=== PATIENT | male | born 1950 | race Caucasian/White ===

== ENCOUNTER → 2020-09-07 15:45 | Outpatient (BNVA) | payer OTHER, MEDICARE, SELFPAY | PROVIDERS: Visit Provider Nurse Practitioner Family | DX: E11.9 Type 2 diabetes mellitus without complications (principal); Z98.890 Other specified postprocedural states | CPT/HCPCS: 82043; 83036 ==

== ENCOUNTER 2022-10-30 08:16 | Oncology outpatient (recurring) (ONCR) | payer MEDICARE, SELFPAY ==
--- NOTE | 2022-10-30 08:43 | N.ONRAD NP_ITS ---
Radiation Oncology Consultation Patient Name: Jose Luis Castellano Date of : 1950 Date of Service: 10/30/2022 Attending Physician: Blake Ash M.D. Jose Luis Castellano was seen in consultation this morning at the request of Castro Olson M.D. for consideration of prostate radiotherapy in the management of a recently diagnosed high-risk prostate cancer. He was evaluated for hematuria. A renal and bladder ultrasonography completed on July 10, [address] demonstrated [address] urography ordered on August 01, 2022 identified a non-obstructive left nephrolithiasis and urinary bladder wall thickening. A cystoscopy with transurethral resection of the prostate was performed by Castro Olson M.D. on September 16, 2022. Intraoperative findings described benign prostatic hypertrophy with capillary lesion within the prostatic urethra and bladder neck. Prostatic chips obtained from the transurethral resection diagnosed a ductal adenocarcinoma with a Zachary score 4+4 (Grade Group 4) involving 13 out of 55 submitted chips. A nuclear bone scintigraphy scan ordered on October 22, 2022 identified degenerative changes in the spine and appendicular skeleton without evidence of osseous metastatic disease. The patient was evaluated for radiotherapy treatment options. I discussed the patient's AJCC presumed clinical stage IIC (T1bN0) high-risk prostate cancer and the National Comprehensive Cancer Network Guidelines recommending androgen deprivation therapy and external beam radiotherapy with or without brachytherapy. These recommendations were based upon several trials (RTOG 9202, EORTC 32961, and DART/GICOR). The EORTC study demonstrated superior survival with long-term ADT. Subgroup analyses of the RTOG and DART/GICOR trials confirmed an overall survival advantage in high-risk patients. I will order labs and will request a PYLARIFY scan to complete staging. I reviewed the potential toxicities of pelvic radiotherapy. The patient has verbalized understanding would like to proceed as recommended. The patient's medical treatment plan was discussed with Castro Olson M.D. Signed by: Blake Ash 10/30/2022 10:18:00 AM
[2022-10-30 10:46] LABS: Testosterone Total 260.6 ng/dL (193-740)
== END 2022-11-13 23:59 | disposition home or self-care (01) ==
PROVIDERS: PCP Family Medicine; Visit Provider Radiology Radiation Oncology
DX: C61 Malignant neoplasm of prostate (principal); R31.9 Hematuria, unspecified; N13.2 Hydronephrosis with renal and ureteral calculous obstruction; M54.50 Low back pain, unspecified; Z79.899 Other long term (current) drug therapy; Z87.891 Personal history of nicotine dependence
CPT/HCPCS: 36415; 84153; 84403; 99205

== ENCOUNTER 2022-11-29 08:54 | Observation (INO) | payer MEDICARE, OTHER, SELFPAY ==
[2022-11-29] VITALS (7 sets, daily range): BP systolic 113–134; BP diastolic 59–79; PULSE 67–87; RESP 14–18; TEMP 36.4–36.9; O2SAT 95–97
--- NOTE | 2022-11-29 08:56 | W.ED.EXTPRO ---
HPI - Extremity Problem General: Chief complaint: ER Hold Stated complaint: Left Leg Swollen and hurting Time Seen by Provider: 11/29/22 08:56 History of Present Illness: Mr. Castellano is a 72-year-old gentleman with history of prostate cancer presenting to the emergency department for evaluation of left lower extremity swelling. He notes onset of symptoms atraumatic approximately 1 week ago. Initially mostly just noticed swelling that was worse at the end of the day and improved in the morning however is now become constant and tense. Notes aching in the posterior calf and knee and mild aching in the posterior thigh. 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 No history of thromboembolic disease. Patient does note hematuria essentially since his prior prostate surgery intermittently. No other specific changes in health, exacerbating, or alleviating factors identified. Onset (ago): day(s) Pain Consistency: intermittent Location: left and lower extremity Quality: aching Exacerbating factors: palpation Associated symptoms: Reports other (Swelling) Review of Systems General: Reports: 10 or more systems reviewed and unremarkable except in HPI and below PFSH ED PFSH: Medical History Type 2 diabetes mellitus without complication Family History (Updated 12/05/22 @ 09:26 by Lorraine Navarro LPN) Mother Cancer skin Dementia Other Diabetes Denies family history of CAD (coronary artery disease) Clotting disorder Hyperlipidemia Psychiatric illness Chronic kidney disease (CKD) Suicide Anesthesia complication Bleeding disorder Lung disease Hypertension Stroke Social History (Updated 12/05/22 @ 09:25 by Lorraine Navarro LPN) Smoking and tobacco status: former smoker Quit status (tobacco): has quit using tobacco Former quit date comment: smoked x 10 years Physical Exam Const: COMMON NORMALS: alert GENERAL APPEARANCE: cooperative and well developed HENMT: COMMON NORMALS: normocephalic and atraumatic HEAD & SCALP: normocephalic and atraumatic Eye: COMMON NORMALS: conjunctivae normal CONJUNCTIVA: Yes conjunctivae normal SCLERA: sclerae normal Neck/C-Spine: COMMON NORMALS: supple GENERAL: Yes trachea midline Resp: COMMON NORMALS: clear to auscultation bilaterally EFFORT & INSPECTION: Yes able to speak in complete sentences AUSCULTATION: clear to auscultation bilaterally Cardio: COMMON NORMALS: regular rate and regular rhythm RATE: regular rate RHYTHM: regular rhythm GI: COMMON NORMALS: Soft to palpation PALPATION: Yes Soft to palpation and No Tenderness to palpation present (GI) Extremity: NARRATIVE EXTREMITY EXAM: Left lower extremity 3+ edema to above the knee, right lower extremity normal GENERAL: Yes normal exam except as noted Neuro: COMMON NORMALS: moves all extremities SENSORIUM/ORIENTATION: Yes alert and No Orientation impaired Psych: COMMON NORMALS: mental status grossly normal and Normal thought process present THOUGHT PROCESS: Normal thought process present Course Vital Signs: Vital signs: Vital Signs Temperature 97.5 F L 11/30/22 12:08 Pulse Rate 81 11/30/22 12:08 Respiratory Rate 18 11/30/22 12:08 Blood Pressure 129/76 11/30/22 12:08 Pulse Oximetry 96 11/30/22 12:08 Oxygen Delivery Me thod Room Air 11/30/22 08:00 MDM - Extremity (Nontraumatic) Medical Decision Making 72-year-old gentleman presenting with leg swelling and discomfort. 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 Labs with no significant hematologic or metabolic abnormality. Patient has hematuria which is intermittently gross hematuria likely chronically microscopic. Ultrasound positive for DVT. Patient given Flomax. Challenging situation as the patient has chronic hematuria. I believe that he requires inpatient observation for initiation of anticoagulation. The results of ED evaluation were discussed with the patient including plan for admission due to requirement for level of care not available if discharged to prevent significant worsening/deterioration. Patient agreeable with plan. Discussed with hospitalist service who was agreeable to admit patient. Medical Records I reviewed the patient's medical records. Lab Data I reviewed the patient's lab results. 11/30/22 05:28 11/30/22 05:28 Laboratory Results WBC 5.5 10^3/uL (4.0-10.0) 11/29/22 09:18 RBC 4.73 10^6/uL (4.1-5.3) 11/29/22 09:18 Hgb 14.8 g/dL (11.7-16.6) 11/29/22 09:18 Hct 44.9 % (42.0-52.0) 11/29/22 09:18 MCV 94.9 fl (80-94) H 11/29/22 09:18 MCH 31.3 pg (28.0-34.0) 11/29/22 09:18 MCHC 33.0 g/dL (30.0-36.0) 11/29/22 09:18 RDW 12.9 % (12.1-15.1) 11/29/22 09:18 Plt Count 187 10^3/cmm (130-400) 11/29/22 09:18 MPV 10.3 fL (7.4-10.4) 11/29/22 09:18 Neut % (Auto) 56.2 % 11/29/22 09:18 Lymph % (Auto) 24.9 % 11/29/22 09:18 [place] % (Auto) 10.2 % 11/29/22 09:18 Eos % (Auto) 7.1 % 11/29/22 09:18 Baso % (Auto) 1.1 % 11/29/22 09:18 Neut # (Auto) 3.09 10^3/uL (1.8-7.7) 11/29/22 09:18 Lymph # (Auto) 1.4 10^3/uL (0.8-4.8) 11/29/22 09:18 [place] # (Auto) 0.6 10^3/uL (0.2-0.9) 11/29/22 09:18 Eos # (Auto) 0.4 10^3/uL (0.0-0.8) 11/29/22 09:18 Baso # (Auto) 0.1 10^3/uL (0.0-0.1) 11/29/22 09:18 Nucleated RBC % (auto) 0 % 11/29/22 09:18 Nucleated RBCs # 0.0 /100WBC 11/29/22 09:18 Sodium 139 mmol/L (136-145) 11/29/22 09:18 Potassium 4.5 mmol/L (3.5-5.1) 11/29/22 09:18 Chloride 104 mmol/L (98-107) 11/29/22 09:18 Carbon Dioxide 25 mmol/L (22-29) 11/29/22 09:18 Anion Gap 14.5 (5-19) 11/29/22 09:18 BUN 16 mg/dL (8-23) 11/29/22 09:18 Creatinine 0.8 mg/dL (0.7-1.2) 11/29/22 09:18 GFR Calculation Not Reportable 11/29/22 09:18 Glucose 121 mg/dL (65-115) H 11/29/22 09:18 Calculated Osmolality 290 mOsm/kg (285-295) 11/29/22 09:18 Calcium 9.9 mg/dL (8.5-10.5) 11/29/22 09:18 Total Bilirubin 0.4 mg/dL (0.15-1.2) 11/29/22 09:18 AST 25 U/L (0-40) 11/29/22 09:18 ALT 30 U/L (0-41) 11/29/22 09:18 Alkaline Phosphatase 54 U/L (40-130) 11/29/22 09:18 Total Protein 7.7 g/dL (6.6-8.7) 11/29/22 09:18 Albumin 4.5 g/dL (3.5-5.2) 11/29/22 09:18 Globulin 3.2 g/dL (1.3-4.6) 11/29/22 09:18 Urine Color Yellow (Yellow) 11/29/22 09:18 Urine Appearance Hazy (CLEAR) A 11/29/22 09:18 Urine pH 5 (5-7) 11/29/22 09:18 Ur Specific [place] 1.020 (1.005-1.030) 11/29/22 09:18 Urine Protein Trace (Negative) 11/29/22 09:18 Urine Glucose (UA) Trace (Normal) H 11/29/22 09:18 Urine Ketones 1+ (Negative) H 11/29/22 09:18 Urine Blood 3+ (Negative) H 11/29/22 09:18 Urine Nitrate Negative (Negative) 11/29/22 09:18 Urine Bilirubin Neg (Negative) 11/29/22 09:18 Urine Urobilinogen Norm mg/dL (Negative) 11/29/22 09:18 Ur Leukocyte Esterase Trace (Negative) H 11/29/22 09:18 Urine RBC >100 /hpf (0-2) H 11/29/22 09:18 Urine WBC 15-25 /hpf (0-5) H 11/29/22 09:18 Ur Squamous Epith Cells 0-4 /hpf (0-5) H 11/29/22 09:18 Ur Transition Epith Cell 0-4 /hpf 11/29/22 09:18 Amorphous Sediment Not Reportable 11/29/22 09:18 Urine Bacteria 1+ /hpf (NONE) H 11/29/22 09:18 Urine Mucus 2+ /hpf 11/29/22 09:18 Discharge Plan Discharge Patient Disposition: Placed in Observation Admit Provider: Susan Bush Clinical Impression: Deep vein thrombosis of lower extremity, Prostate cancer, Hematuria Discharge Diet: Usual diet Discharge Activity: Resume usual activity Coding Level of Care Code ED Sandwich Artist for Jose Garcia
--- NOTE | 2022-11-29 09:04 | USCV_ITS ---
Jose Luis Castellano Age: 72 Gender: M : 1950 Exam Date: 11/29/2022 09:23 Ordering Phys: Candido Ramos MD Technologist: Margo Soria [place] [facility] [place]: SWOLLEN LT LEG HISTORY: Being treated for Prostate cancer. noticed Lt leg was very swollen PROCEDURES: Venous duplex imaging was performed in only the left lower extremity. The following venous structures were evaluated: common femoral vein, profunda vein, proximal portion of the greater saphenous vein, superficial femoral vein, and the popliteal vein. In addition, the posterior tibial and peroneal trunk were evaluated. Serial compression, augmentation maneuvers, and spectral Doppler flow evaluation were performed. FINDINGS: No Superficial thrombus noted on exam Lt CFV has debris Lt FV is occluded Lt POP is occluded LT Peroneal is occluded Lt PT V normal. CONCLUSIONS Acute LEFT lower extremity deep venous thrombosis. Dr. Jessica Ely DO (Electronically Signed) Final Date: 29 November 2022 10:15 S
[2022-11-29 09:30] LABS: Basophils # 0.1 10^3/uL (0.0-0.1); Basophils % 1.1 %; Eosinophils # 0.4 10^3/uL (0.0-0.8); Eosinophils % 7.1 %; Hematocrit 44.9 % (42.0-52.0); Hemoglobin 14.8 g/dL (11.7-16.6); Lymphocytes # 1.4 10^3/uL (0.8-4.8); Lymphocytes % 24.9 %; Mean Corpuscular Hemoglobin 31.3 pg (28.0-34.0); Mean Corpuscular Volume 94.9 fl (80-94); Mean Platelet Volume 10.3 fL (7.4-10.4); Monocytes # 0.6 10^3/uL (0.2-0.9); Monocytes % 10.2 %; Neutrophils # 3.09 10^3/uL (1.8-7.7); Neutrophils % 56.2 %; Nucleated Red Blood Cells % 0 %; Platelet Count 187 10^3/cmm (130-400); Red Blood Count 4.73 10^6/uL (4.1-5.3); Red Cell Distribution Width 12.9 % (12.1-15.1); White Blood Count 5.5 10^3/uL (4.0-10.0)
[2022-11-29 09:45] LABS: Alanine Aminotransferase 30 U/L (0-41); Albumin Level 4.5 g/dL (3.5-5.2); Alkaline Phosphatase 54 U/L (40-130); Anion Gap 14.5 (5-19); Aspartate Amino Transferase 25 U/L (0-40); Blood Urea Nitrogen 16 mg/dL (8-23); Calcium 9.9 mg/dL (8.5-10.5); Carbon Dioxide 25 mmol/L (22-29); Chloride 104 mmol/L (98-107); Globulin 3.2 g/dL (1.3-4.6); Glucose 121 mg/dL (65-115); Osmolality Calculated 290 mOsm/kg (285-295); Potassium 4.5 mmol/L (3.5-5.1); Sodium 139 mmol/L (136-145); Total Bilirubin 0.4 mg/dL (0.15-1.2); Total Protein 7.7 g/dL (6.6-8.7)
[2022-11-29 09:54] LABS: Add Urine Microscopic? YES; Bilirubin Urine Neg (Negative); Blood Urine 3+ (Negative); Glucose Urine UA Trace (Normal); Ketones Urine 1+ (Negative); Leukocyte Esterase Urine Trace (Negative); Nitrate Urine Negative (Negative); Protein Urine Trace (Negative); Urine Appearance Hazy (CLEAR); Urine Color Yellow (Yellow); Urobilinogen Urine Norm (Negative); pH Urine 5 (5-7)
[2022-11-29 09:55] LABS: RBC Urine >100 /hpf (0-2); WBC Urine 15-25 /hpf (0-5)
[2022-11-29 09:56] LABS: Add Urine Culture? Yes; Bacteria Urine 1+ /hpf; Mucus Urine 2+ /hpf; Squamous Epithelial Cell Urine 0-4 /hpf (0-5); Transitional Epi Cells Urine 0-4 /hpf
[2022-11-29] MEDS: enoxaparin 100 mg/mL Syringe 90 MG SUBCUT ×2 (10:48→22:14)
[2022-11-29 16:17] LABS: Glucose Point of Care 180 mg/dL (70-110)
--- NOTE | 2022-11-29 16:32 | P.HP_ITS ---
Providers/Chief Complaint Admitting Physician: Susan Bush MD Primary Care Provider: Scotty Sifuentes Chief Complaint: Left Leg Swollen and hurting History of Present Illness Jose Luis Castellano is a 72 year old male with PMH prostate ca, recently diagnosed , s/p TURP, follows with Dr. Ash for urology p/w 2 days of left leg swelling pain and tenderness. He is due to start radiation, was noticed priro to radiation to have leg swelling and sent to the ER. HE is found to have a DVT. No past h/o DVT. no recent immobilization. No recent surgeries. 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 No chest pain, dyspnea, palpitations or other respiratory symptoms. Review of Systems General: Reports: 10 or more systems reviewed and unremarkable except in HPI and below Const: Denies: fever(s), chills or body aches Eyes: Denies: change in vision, blurry vision or photophobia ENMT: Reports: hoarseness; Denies: throat pain, enlarged tonsils, odynophagia or nasal congestion Card: Denies: chest pain, palpitations, irregular heart rhythm, edema, swelling of feet/ankles, lightheadedness, pre-syncope, dyspnea on exertion or orthopnea Resp: Denies: dyspnea, productive cough, non-productive cough, wheezing, stridor, pain on inspiration, change in phlegm color, hemoptysis or chest congestion GI: Denies: abdominal pain, nausea, vomiting, hematemesis, coffee ground emesis, dysphagia, heartburn, diarrhea, constipation, GI cramping, change in stool character, hematochezia or melena : Denies: flank pain, dysuria, urinary frequency, urinary urgency, urinary hesitancy or hematuria Musc: Denies: neck pain, back pain, extremity pain, joint swelling, joint warmth or deformity Neuro: Denies: headache(s), numbness in extremities, weakness in extremities, sensory changes, difficulty walking, frequent falls, dizziness, vertigo, behavi oral changes, Slurred speech present or seizure-like activity Psych: Denies: anxiety, depression, suicidal ideation or homicidal ideation Endo: Denies: polyuria, polydipsia, tired all the time, cold intolerance or hot flashes Trip/Lymph: Denies: easy bruising or easy bleeding Medications/Allergies Home Medications Medication Instructions Recorded Confirmed Last Taken Type metformin 500 mg tablet 1,000 mg PO BID 10/30/22 11/29/22 11/29/22 History multivitamin 1 tab PO DAILY #30 tabs 10/30/22 11/29/22 11/29/22 Rx sildenafil 100 mg tablet 100 mg PO DAILY PRN sexual 10/30/22 11/29/22 Unknown Rx activity #30 tabs aspirin 325 mg capsule 650 mg PO DAILY 11/29/22 11/29/22 11/29/22 History tamsulosin 0.4 mg capsule 0.8 mg PO QPM 11/29/22 11/29/22 11/28/22 History Allergies Allergy/AdvReac Type Severity Reaction Status Date / Time No Known Allergies Allergy Verified 11/29/22 10:51 PFSH Acute PFSH: Medical History Type 2 diabetes mellitus without complication Social History Smoking and tobacco status: never smoked Vitals/I&O/Wt Last Vital Signs Temp 97.6 F 11/29/22 15:31 Pulse 85 11/29/22 15:31 Resp 16 11/29/22 15:31 BP 127/75 11/29/22 15:31 Pulse Ox 95 11/29/22 15:31 O2 Del Method Room Air 11/29/22 11:16 Weight last 48 hrs Weight 88.451 kg Physical Exam Narrative: General: No acute distress, AO x3 HEENT: PERRLA, pupils bilaterally equal and reactive, pallors not present Chest: Normal vesicular breath sounds, no added sounds, equal good air entry bilaterally CVS: S1-S2 regular, no murmurs, no tachycardia, no gallops, no rubs Abdomen: Soft, nontender, no organomegaly, bowel sounds present Neuro: No focal deficits, no facial deformity, AO x3, power 5/5 in all limbs Extremities: LLE swelling around ankle extending to mid calf level Data 11/29/22 09:18 11/29/22 09:18 Other data: Laboratory Results WBC 5.5 10^3/uL (4.0-10.0) 11/29/22 09:18 RBC 4.73 10^6/uL (4.1-5.3) 11/29/22 09:18 Hgb 14.8 g/dL (11.7-16.6) 11/29/22 09:18 Hct 44.9 % (42.0-52.0) 11/29/22 09:18 MCV 94.9 fl (80-94) H 11/29/22 09:18 MCH 31.3 pg (28.0-34.0) 11/29/22 09:18 MCHC 33.0 g/dL (30.0-36.0) 11/29/22 09:18 RDW 12.9 % (12.1-15.1) 11/29/22 09:18 Plt Count 187 10^3/cmm (130-400) 11/29/22 09:18 MPV 10.3 fL (7.4-10.4) 11/29/22 09:18 Neut % (Auto) 56.2 % 11/29/22 09:18 Lymph % (Auto) 24.9 % 11/29/22 09:18 [place] % (Auto) 10.2 % 11/29/22 09:18 Eos % (Auto) 7.1 % 11/29/22 09:18 Baso % (Auto) 1.1 % 11/29/22 09:18 Neut # (Auto) 3.09 10^3/uL (1.8-7.7) 11/29/22 09:18 Lymph # (Auto) 1.4 10^3/uL (0.8-4.8) 11/29/22 09:18 [place] # (Auto) 0.6 10^3/uL (0.2-0.9) 11/29/22 09:18 Eos # (Auto) 0.4 10^3/uL (0.0-0.8) 11/29/22 09:18 Baso # (Auto) 0.1 10^3/uL (0.0-0.1) 11/29/22 09:18 Nucleated RBC % (auto) 0 % 11/29/22 09:18 Nucleated RBCs # 0.0 /100WBC 11/29/22 09:18 Sodium 139 mmol/L (136-145) 11/29/22 09:18 Potassium 4.5 mmol/L (3.5-5.1) 11/29/22 09:18 Chloride 104 mmol/L (98-107) 11/29/22 09:18 Carbon Dioxide 25 mmol/L (22-29) 11/29/22 09:18 Anion Gap 14.5 (5-19) 11/29/22 09:18 BUN 16 mg/dL (8-23) 11/29/22 09:18 Creatinine 0.8 mg/dL (0.7-1.2) 11/29/22 09:18 GFR Calculation Not Reportable 11/29/22 09:18 Glucose 121 mg/dL (65-115) H 11/29/22 09:18 POC Glucose 121 mg/dL (70-110) H 11/29/22 21:36 Calculated Osmolality 290 mOsm/kg (285-295) 11/29/22 09:18 Calcium 9.9 mg/dL (8.5-10.5) 11/29/22 09:18 Total Bilirubin 0.4 mg/dL (0.15-1.2) 11/29/22 09:18 AST 25 U/L (0-40) 11/29/22 09:18 ALT 30 U/L (0-41) 11/29/22 09:18 Alkaline Phosphatase 54 U/L (40-130) 11/29/22 09:18 Total Protein 7.7 g/dL (6.6-8.7) 11/29/22 09:18 Albumin 4.5 g/dL (3.5-5.2) 11/29/22 09:18 Globulin 3.2 g/dL (1.3-4.6) 11/29/22 09:18 Urine Color Yellow (Yellow) 11/29/22 09:18 Urine Appearance Hazy (CLEAR) A 11/29/22 09:18 Urine pH 5 (5-7) 11/29/22 09:18 Ur Specific [place] 1.020 (1.005-1.030) 11/29/22 09:18 Urine Protein Trace (Negative) 11/29/22 09:18 Urine Glucose (UA) Trace (Normal) H 11/29/22 09:18 Urine Ketones 1+ (Negative) H 11/29/22 09:18 Urine Blood 3+ (Negative) H 11/29/22 09:18 Urine Nitrate Negative (Negative) 11/29/22 09:18 Urine Bilirubin Neg (Negative) 11/29/22 09:18 Urine Urobilinogen Norm mg/dL (Negative) 11/29/22 09:18 Ur Leukocyte Esterase Trace (Negative) H 11/29/22 09:18 Urine RBC >100 /hpf (0-2) H 11/29/22 09:18 Urine WBC 15-25 /hpf (0-5) H 11/29/22 09:18 Ur Squamous Epith Cells 0-4 /hpf (0-5) H 11/29/22 09:18 Ur Transition Epith Cell 0-4 /hpf 11/29/22 09:18 Amorphous Sediment Not Reportable 11/29/22 09:18 Urine Bacteria 1+ /hpf (NONE) H 11/29/22 09:18 Urine Mucus 2+ /hpf 11/29/22 09:18 A&P Assessment and plan (1) Deep vein thrombosis of lower extremity: 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 (2) Hematuria: currently denies active bleeding microscopic hematuria on UA Reports this to be intermittent (3) Prostate cancer: Attestations Medical Necessity Statement*: less than 2 midnight stay anticipated at this time Coding Level of Care Code Acute Code for Chg Fwd Diagnoses Deep vein thrombosis of lower extremity I82.409 Hematuria R31.9 Prostate cancer C61
[2022-11-29] MEDS: tamsulosin 0.4 mg Capsule 0.8 MG PO (17:42)
[2022-11-29] MEDS: metformin 500 mg Tablet 1000 MG PO (17:42)
[2022-11-29 21:39] LABS: Glucose Point of Care 121 mg/dL (70-110)
[2022-11-30] VITALS: BP 130/78; PULSE 81; RESP 18; TEMP 36.7; O2SAT 96
[2022-11-30 05:00] VITALS: BP 125/76; PULSE 88; RESP 19; TEMP 36.4; O2SAT 96
[2022-11-30 06:05] LABS: Basophils % 0.6 %; Eosinophils # 0.4 10^3/uL (0.0-0.8); Eosinophils % 8.4 %; Hematocrit 40.5 % (42.0-52.0); Hemoglobin 13.4 g/dL (11.7-16.6); Lymphocytes # 1.2 10^3/uL (0.8-4.8); Lymphocytes % 24.7 %; Mean Corpuscular HGB Conc 33.1 g/dL (30.0-36.0); Mean Corpuscular Volume 93.8 fl (80-94); Mean Platelet Volume 10.7 fL (7.4-10.4); Monocytes # 0.5 10^3/uL (0.2-0.9); Monocytes % 9.9 %; Neutrophils # 2.59 10^3/uL (1.8-7.7); Neutrophils % 55.8 %; Nucleated Red Blood Cells % 0 %; Platelet Count 156 10^3/cmm (130-400); Red Blood Count 4.32 10^6/uL (4.1-5.3); Red Cell Distribution Width 12.8 % (12.1-15.1); White Blood Count 4.7 10^3/uL (4.0-10.0)
[2022-11-30 06:27] LABS: Alanine Aminotransferase 24 U/L (0-41); Alkaline Phosphatase 45 U/L (40-130); Anion Gap 14.5 (5-19); Aspartate Amino Transferase 22 U/L (0-40); Blood Urea Nitrogen 14 mg/dL (8-23); Carbon Dioxide 24 mmol/L (22-29); Chloride 106 mmol/L (98-107); Globulin 2.7 g/dL (1.3-4.6); Glucose 138 mg/dL (65-115); Osmolality Calculated 293 mOsm/kg (285-295); Potassium 4.5 mmol/L (3.5-5.1); Sodium 140 mmol/L (136-145); Total Bilirubin 0.5 mg/dL (0.15-1.2); Total Protein 6.7 g/dL (6.6-8.7)
[2022-11-30 06:33] LABS: Glucose Point of Care 143 mg/dL (70-110)
[2022-11-30 08:00] VITALS: BP 129/76; PULSE 81; RESP 18; TEMP 36.4; O2SAT 96
[2022-11-30] MEDS: metformin 500 mg Tablet 1000 MG PO (08:26)
[2022-11-30] MEDS: apixaban 5 mg Tablet 10 MG PO (08:26)
[2022-11-30] MEDS: pantoprazole DR 40 mg Tablet PO (08:26)
--- NOTE | 2022-11-30 10:42 | P.DS_ITS ---
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 Ash for urology p/w 2 days of left leg swelling pain and tenderness. He is due to start radiation, was noticed prior to radiation to have leg swelling and sent to the ER. HE is found to have a left leg DVT. No past h/o DVT. no recent immobilization. No recent surgeries. 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 No chest pain, dyspnea, palpitations or other respiratory symptoms. LE duplex showed ?acute LEFT? lower extremity deep venous thrombosis. He was started on anticoagulation with Lovenox which was transitioned to Eliquis today. Patient's has had on and off hematuria since his procedure approximately 1 month ago. Currently reports that he has a few drops of blood at the initiation of urinary stream but no massive hematuria. Instructed to watch his urine with initiation of anticoagulation. Should hematuria become worse he is instructed to come back into the emergency room as he may need urological intervention and if not tolerating anticoagulation will need placement of an IVC filter. Discussed with him the option of staying in the hospital to monitor for hematuria with initiating Eliquis as this is a high risk anticoagulation for him, however patient is keen on returning home. He lives in [place] and states has a way of getting back in the hospital fairly quickly should any adverse events happen. Patient takes preventative 650 mg of aspirin every day. States that he does not have any known past cardiac history. Counseled to discontinue aspirin use while he is on Eliquis to minimize risk of bleeding events. Follow-up with p [facility] care provider within 1 week. Physical Exam Narrative: General: No acute distress, AO x3 HEENT: PERRLA, pupils bilaterally equal and reactive, pallors not present Chest: Normal vesicular breath sounds, no added sounds, equal good air entry bilaterally CVS: S1-S2 regular, no murmurs, no tachycardia, no gallops, no rubs Abdomen: Soft, nontender, no organomegaly, bowel sounds present Neuro: No focal deficits, no facial deformity, AO x3, power 5/5 in all limbs Extremities: LLE swellolen, erythematous especially over ankle up to mid calf level. Discharge Data Studies Completed and Pending Completed Studies During Hospitalization Category Date Time Status US venous duplex lower extremity LT [CV venous duplex Ultrasound 11/29/22 09:04 [place] [address]] Stat Pending at discharge Category Date Time Status Urine Culture Stat Lab 11/29/22 09:18 Received Laboratory Results WBC 4.7 10^3/uL (4.0-10.0) 11/30/22 05:28 RBC 4.32 10^6/uL (4.1-5.3) 11/30/22 05:28 Hgb 13.4 g/dL (11.7-16.6) 11/30/22 05:28 Hct 40.5 % (42.0-52.0) L 11/30/22 05:28 MCV 93.8 fl (80-94) 11/30/22 05:28 MCH 31.0 pg (28.0-34.0) 11/30/22 05:28 MCHC 33.1 g/dL (30.0-36.0) 11/30/22 05:28 RDW 12.8 % (12.1-15.1) 11/30/22 05:28 Plt Count 156 10^3/cmm (130-400) 11/30/22 05:28 MPV 10.7 fL (7.4-10.4) H 11/30/22 05:28 Neut % (Auto) 55.8 % 11/30/22 05:28 Lymph % (Auto) 24.7 % 11/30/22 05:28 Ralls % (Auto) 9.9 % 11/30/22 05:28 Eos % (Auto) 8.4 % 11/30/22 05:28 Baso % (Auto) 0.6 % 11/30/22 05:28 Neut # (Auto) 2.59 10^3/uL (1.8-7.7) 11/30/22 05:28 Lymph # (Auto) 1.2 10^3/uL (0.8-4.8) 11/30/22 05:28 Ralls # (Auto) 0.5 10^3/uL (0.2-0.9) 11/30/22 05:28 Eos # (Auto) 0.4 10^3/uL (0.0-0.8) 11/30/22 05:28 Baso # (Auto) 0.0 10^3/uL (0.0-0.1) 11/30/22 05:28 Nucleated RBC % (auto) 0 % 11/30/22 05:28 Nucleated RBCs # 0.0 /100WBC 11/30/22 05:28 Sodium 140 mmol/L (136-145) 11/30/22 05:28 Potassium 4.5 mmol/L (3.5-5.1) 11/30/22 05:28 Chloride 106 mmol/L (98-107) 11/30/22 05:28 Carbon Dioxide 24 mmol/L (22-29) 11/30/22 05:28 Anion Gap 14.5 (5-19) 11/30/22 05:28 BUN 14 mg/dL (8-23) 11/30/22 05:28 Creatinine 0.7 mg/dL (0.7-1.2) 11/30/22 05:28 GFR Calculation Not Reportable 11/30/22 05:28 Glucose 138 mg/dL (65-115) H 11/30/22 05:28 POC Glucose 143 mg/dL (70-110) H 11/30/22 06:29 Calculated Osmolality 293 mOsm/kg (285-295) 11/30/22 05:28 Calcium 9.0 mg/dL (8.5-10.5) 11/30/22 05:28 Total Bilirubin 0.5 mg/dL (0.15-1.2) 11/30/22 05:28 AST 22 U/L (0-40) 11/30/22 05:28 ALT 24 U/L (0-41) 11/30/22 05:28 Alkaline Phosphatase 45 U/L (40-130) 11/30/22 05:28 Total Protein 6.7 g/dL (6.6-8.7) 11/30/22 05:28 Albumin 4.0 g/dL (3.5-5.2) 11/30/22 05:28 Globulin 2.7 g/dL (1.3-4.6) 11/30/22 05:28 Urine Color Yellow (Yellow) 11/29/22 09:18 Urine Appearance Hazy (CLEAR) A 11/29/22 09:18 Urine pH 5 (5-7) 11/29/22 09:18 Ur Specific [place] 1.020 (1.005-1.030) 11/29/22 09:18 Urine Protein Trace (Negative) 11/29/22 09:18 Urine Glucose (UA) Trace (Normal) H 11/29/22 09:18 Urine Ketones 1+ (Negative) H 11/29/22 09:18 Urine Blood 3+ (Negative) H 11/29/22 09:18 Urine Nitrate Negative (Negative) 11/29/22 09:18 Urine Bilirubin Neg (Negative) 11/29/22 09:18 Urine Urobilinogen Norm mg/dL (Negative) 11/29/22 09:18 Ur Leukocyte Esterase Trace (Negative) H 11/29/22 09:18 Urine RBC >100 /hpf (0-2) H 11/29/22 09:18 Urine WBC 15-25 /hpf (0-5) H 11/29/22 09:18 Ur Squamous Epith Cells 0-4 /hpf (0-5) H 11/29/22 09:18 Ur Transition Epith Cell 0-4 /hpf 11/29/22 09:18 Amorphous Sediment Not Reportable 11/29/22 09:18 Urine Bacteria 1+ /hpf (NONE) H 11/29/22 09:18 Urine Mucus 2+ /hpf 11/29/22 09:18 Vitals Last Vital Signs Temp 97.5 F L 11/30/22 08:00 Pulse 81 11/30/22 08:00 Resp 18 11/30/22 08:00 BP 129/76 11/30/22 08:00 Pulse Ox 96 11/30/22 08:00 O2 Del Method Room Air 11/30/22 08:00 Discharge Plan Discharge Patient Disposition: Home Condition: Stable Prescriptions: New pantoprazole 40 mg Tablet,Delayed Release (Dr/Ec) 40 mg PO DAILY 30 Days Qty: 30 0RF Eliquis 5 mg Tablet 5 mg PO BID@0900,2100 60 Days Qty: 120 0RF Rx Instructions: take 10mg (2tablets) daily for 7 days,then reduce dose to one tab (5mg) BID Continued sildenafil 100 mg tablet 100 mg PO DAILY PRN (Reason: sexual activity) Qty: 30 0RF Rx Instructions: administer 30 minutes to 4 hours before activity multivitamin Tablet 1 tab PO DAILY Qty: 30 0RF metformin 500 mg tablet 1,000 mg PO BID tamsulosin 0.4 mg capsule 0.8 mg PO QPM Discontinued aspirin 325 mg Capsule 650 mg PO DAILY Discharge Orders: Discharge Order (Routine); Ordered 11/30/22 Ordered By: Susan Bush Referrals: Scotty Sifuentes [Primary Care Provider] - 1 week Discharge Diet: Usual diet Discharge Activity: Resume usual activity Patient Instructions: Opioid Safety Stand Alone Forms: Work/School Release Discharge Attestations Time Spent in Discharge Care*: greater than 30 min Quality Metrics Clinical Quality Measures [ No reported AMI, CVA or VTE this stay] Coding Level of Care Code Acute Code for Chg Fwd Diagnoses Deep vein thrombosis of lower extremity I82.409 Hematuria R31.9 Prostate cancer C61
[2022-11-30 11:24] LABS: Glucose Point of Care 148 mg/dL (70-110)
[2022-11-30 12:08] VITALS: BP 129/76; PULSE 81; RESP 18; TEMP 36.4; O2SAT 96
--- NOTE | 2022-11-30 12:13 | PC.NURSE ---
patient verbalized understanding of discharge instructions, home medications, and the need to make a follow up appointment. Doris JANSEN clarified eliquis prescription with [facility]- patient was directed to take 10 mg BID for one week, then 5 mg BID.
== END 2022-11-30 11:55 | disposition home or self-care (01) ==
LOC: ER 11:02 → MEDSURG 13:18
PROVIDERS: Admitting Provider Student in an Organized Health Care Education/Training Program; Emergency Provider Emergency Medicine; PCP Family Medicine; Visit Provider Student in an Organized Health Care Education/Training Program
DX: I82.412 Acute embolism and thrombosis of left femoral vein (principal); I82.432 Acute embolism and thrombosis of left popliteal vein; I82.452 Acute embolism and thrombosis of left peroneal vein; R31.9 Hematuria, unspecified; Z79.82 Long term (current) use of aspirin; C61 Malignant neoplasm of prostate; Z87.891 Personal history of nicotine dependence; E11.9 Type 2 diabetes mellitus without complications; Z79.84 Long term (current) use of oral hypoglycemic drugs
CPT/HCPCS: 36415; 36416; 80053; 81001; 82962; 85025; 87086; 93971; 96372; 99285; G0378; J1650

== ENCOUNTER 2022-12-05 10:30 | Oncology outpatient (recurring) (ONCR) | payer MEDICARE, SELFPAY ==
--- NOTE | 2022-11-29 08:48 | ONCRAD EPV_ITS ---
Radiation Oncology Follow-Up Note Patient Name: Jose Luis Castellano Date of : 1950 Date of Service: 11/29/2022 Attending Physician: Blake Ash M.D. Jose Luis Castellano returned to my office this morning to discuss the results of a Pylarify scan. He was evaluated for hematuria. A renal and bladder ultrasonography completed on July 10, 2022 demonstrated [address]. [address] urography ordered on August 01, 2022 identified a non-obstructive left nephrolithiasis and urinary bladder wall thickening. A cystoscopy with transurethral resection of the prostate was performed by Castro Olson M.D. on September 16, 2022. Intraoperative findings described benign prostatic hypertrophy with capillary lesion within the prostatic urethra and bladder neck. Prostatic chips obtained from the transurethral resection diagnosed a ductal adenocarcinoma with a Zachary score 4+4 (Grade Group 4) involving 13 out of 55 submitted chips. A nuclear bone scintigraphy scan ordered on October 22, 2022 identified degenerative changes in the spine and appendicular skeleton without evidence of osseous metastatic disease. A Pylarify scan obtained on November 22, 2022 identified hypermetabolic activity in the prostate gland (SUV 15.1). There were no other foci of activity to indicate metastatic disease. I discussed the patient's AJCC presumed clinical stage IIC (T1bN0) high-risk prostate cancer and the National Comprehensive Cancer Network Guidelines recommending androgen deprivation therapy and external beam radiotherapy with or without brachytherapy. These recommendations were based upon several trials (RTOG 9202, EORTC 33754, and DART/GICOR). The EORTC study demonstrated superior survival with long-term ADT. Subgroup analyses of the RTOG and DART/GICOR trials confirmed an overall survival advantage in high-risk patients. I will refer him to medical oncology for ADT. I would endorse a 7/2-week course of radiotherapy which will be implemented following neoadjuvant hormonal therapy. A planning CT scan with contrast will be acquired prior to implementation of radiation treatment to delineate the clinical target volumes. I reviewed the potential toxicities of pelvic radiotherapy. The patient has verbalized understanding would like to proceed as recommended. During the visit, he described left lower extremity pain and swelling. Examination confirmed the symptoms. [facility] for possible DVT. Signed by: Dr. Blake Ash 11/29/2022 8:46:54 AM
[2022-12-05] MEDS: leuprolide 22.5 mg Kit IM (10:59)
[2022-12-05 11:08] VITALS: BP 121/68; PULSE 80; RESP 18; TEMP 36.3; O2SAT 96
== END 2022-12-13 23:59 | disposition home or self-care (01) ==
PROVIDERS: PCP Family Medicine; Visit Provider Radiology Radiation Oncology
DX: C61 Malignant neoplasm of prostate (principal); I82.402 Acute embolism and thrombosis of unspecified deep veins of left lower extremity; Z79.01 Long term (current) use of anticoagulants; Z90.89 Acquired absence of other organs; Z79.818 Long term (current) use of other agents affecting estrogen receptors and estrogen levels
CPT/HCPCS: 96372; 96402; 99204; J9217

== ENCOUNTER 2023-01-31 07:29 | Oncology outpatient (recurring) (ONCR) | payer MEDICARE, SELFPAY ==
[2023-01-16 11:03] LABS: Basophils % 0.8 %; Eosinophils # 0.3 10^3/uL (0.0-0.8); Eosinophils % 5.1 %; Hematocrit 41.7 % (42.0-52.0); Hemoglobin 14.4 g/dL (11.7-16.6); Lymphocytes # 1.4 10^3/uL (0.8-4.8); Lymphocytes % 27.7 %; Mean Corpuscular HGB Conc 34.5 g/dL (30.0-36.0); Mean Corpuscular Hemoglobin 31.6 pg (28.0-34.0); Mean Corpuscular Volume 91.6 fl (80-94); Mean Platelet Volume 10.7 fL (7.4-10.4); Monocytes # 0.6 10^3/uL (0.2-0.9); Monocytes % 11.2 %; Neutrophils # 2.69 10^3/uL (1.8-7.7); Neutrophils % 54.8 %; Nucleated Red Blood Cells % 0 %; Platelet Count 163 10^3/cmm (130-400); Red Blood Count 4.55 10^6/uL (4.1-5.3); White Blood Count 4.9 10^3/uL (4.0-10.0)
[2023-01-16 11:05] VITALS: BP 129/79; PULSE 89; TEMP 36.4; O2SAT 95
[2023-01-16 11:30] LABS: Albumin Level 4.2 g/dL (3.5-5.2); Alkaline Phosphatase 40 U/L (40-130); Blood Urea Nitrogen 15 mg/dL (8-23); Calcium 9.2 mg/dL (8.5-10.5); Carbon Dioxide 21 mmol/L (22-29); Chloride 104 mmol/L (98-107); Globulin 2.7 g/dL (1.3-4.6); Glucose 105 mg/dL (65-115); Osmolality Calculated 285 mOsm/kg (285-295); Sodium 137 mmol/L (136-145); Total Bilirubin 0.3 mg/dL (0.15-1.2); Total Protein 6.9 g/dL (6.6-8.7)
[2023-01-16 11:33] LABS: Alanine Aminotransferase 39 U/L (0-41); Anion Gap 16.6 (5-19); Aspartate Amino Transferase 31 U/L (0-40); Potassium 4.6 mmol/L (3.5-5.1)
[2023-01-22] MEDS: iohexol 350 mg/mL 100 mL Btl IV (12:50)
--- NOTE | 2023-01-28 16:49 | ONCRAD TMN_ITS ---
Radiation Oncology Weekly Treatment Management Patient: Jose Luis Castellano MR#: [id number] : 1950> Attending Physician: Sj Hernández Date of Service: 01/28/2023 Referring Physician(s) : Diagnosis: Radiotherapy to date: Course: Prostate 2022, Treatment Site: Prost Initial, Ref. ID: [id number], Energy: 15X, Dose/Fx (cGy): 200, #Fx: , Dose Correction (cGy): 0, Total Dose (cGy): 200, Start Date: 01/28/2023, Elapsed Days: 0 Reason for visit: The patient is being seen today as part of their regularly scheduled weekly on treatment visits to assess for acute toxicities from radiotherapy. Review of Systems: He had last Negron placement for urinary obstruction 5 weeks ago. On Flomax BID. He has variable nocturia 3 to 6 x. Bowels are ok. Stools occur 3 to 5 x a week. Anxious to resume work tomorrow. 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 Vital Signs: Performed on 01/28/2023 3:43 PM BMI - 29.801 kg/m2 (high), Height - 69 in, Weight - 201.8 lbs, Temperature - 96.7 f, Pulse - 100 /min, Respiration - 18 /min, O2 Sat - 92 % (low), Pain - 0, Fatigue - 0 and BP - 138/ 77 mm(hg). Physical Exam: Imaging: Radiation therapy imaging related to accurate target localization (i.e. KV, MV and CBCT) was reviewed. Appropriate changes, if any, were made to ensure treatment accuracy. Plan: Treatment begun today. Will continue as planned. Signed by: Sj Hernández 01/28/2023 4:48:04 PM
== END 2023-01-31 23:59 | disposition home or self-care (01) ==
PROVIDERS: Radiology Radiation Oncology; PCP Family Medicine; Visit Provider Radiology Radiation Oncology
DX: Z51.0 Encounter for antineoplastic radiation therapy (principal); C61 Malignant neoplasm of prostate
CPT/HCPCS: 36415; 77300; 77301; 77334; 77338; 77385; 77470; 80053; 85025; 99024; Q9967

== ENCOUNTER 2023-02-12 10:56 | Outpatient (CLI) | payer MEDICARE, SELFPAY ==
--- NOTE | 2023-02-12 11:28 | MR_ITS ---
WS: [id number] MRI LEFT KNEE NONCONTRAST TECHNIQUE: Axial PD, coronal PD fat sat, coronal PD, sagittal PD, and sagittal PD fat-sat images obta ined. CLINICAL INFORMATION: PAIN OF LEFT LOWER EXTREMITY/PAIN SWELLING OF L KNEE COMPARISON: None. FINDINGS: Distal quadriceps and patellar tendons are intact. Moderate suprapatellar effusion. Grade III chondro malacia patella. No subchondral edema. This is worse involving the lateral patellar facet. 1. Prepatellar and infrapatellar soft tissue edema. Normal ACL and PCL. Soft tissue edema about the joint line. Moderate chondromalacia medial and lateral joint compartments. No acute appearing menisca l tears. Fluid and edema along the medial collateral ligament with mild laxity. Distal ligament appea rs intact. Findings compatible with grade 1-2 injury. Normal lateral collateral ligament and popliteu s. IMPRESSION: 2. Moderate suprapatellar effusion with grade III chondromalacia patella worse involving the lateral facet. 3. Moderate tricompartmental arthritis with grade III chondromalacia medial and lateral joint compar tments. 4. ACL and PCL appear intact. 5. Fluid and edema along the medial collateral ligament with mild laxity. Distal ligament appears in tact. Findings compatible with grade 1-2 injury 6. No acute appearing meniscal tears. Chronic thinning of the medial and lateral meniscus. 7. ACL and PCL appear intact. 8. Soft tissue edema about the joint line. Outbridge grading: grade III: partial-thickness cartilage loss with focal ulceration
--- NOTE | 2023-02-12 11:45 | XR_ITS ---
WS: [id number] Exam: XR knee LT 3V* [id number] Date/Time of Exam: 02/12/2023 11:51 AM Reason For Exam: EFFUSION OF L KNEE No fracture or dislocation. The joint compartments are relatively well-maintained. No joint effusion. Soft tissues are unremarkable. Mild spurring of the posterior patella. IMPRESSION: 1. No fracture, joint effusion or other significant finding.
== END 2023-02-12 10:57 | disposition home or self-care (01) ==
PROVIDERS: PCP Family Medicine; Visit Provider Registered Nurse
DX: M22.42 Chondromalacia patellae, left knee (principal); M17.12 Unilateral primary osteoarthritis, left knee; M25.462 Effusion, left knee
CPT/HCPCS: 73562; 73721

== ENCOUNTER 2023-02-13 12:54 | Oncology outpatient (recurring) (ONCR) | payer MEDICARE, SELFPAY ==
--- NOTE | 2023-02-04 22:45 | ONCRAD TMN_ITS ---
Radiation Oncology Weekly Treatment Management Patient: Gray Amaya MR#: [id number] : 1950 Attending Physician: Sj Hernández Date of Service: 02/04/2023 Referring Physician(s) : Diagnosis: Radiotherapy to date: Course: Prostate 2022, Treatment Site: Prost Initial, Ref. ID: [id number], Energy: 15X, Dose/Fx (cGy): 200, #Fx: , Dose Correction (cGy): 0, Total Dose (cGy): 1,200, Start Date: 01/28/2023, Elapsed Days: 7 Reason for visit: The patient is being seen today as part of their regularly scheduled weekly on treatment visits to assess for acute toxicities from radiotherapy. Review of Systems: Flow is ok. Stable 4 to 5 x nocturia.. On Flomax BID. NO heme. ADT well tolerated with HF . Occasional diarrhea. Vital Signs: Performed on 02/04/2023 3:43 PM BMI - 29.269 kg/m2 (high), Height - 69 in, Weight - 198.2 lbs, Temperature - 97.3 f, Pulse - 87 /min, Respiration - 16 /min, O2 Sat - 97 %, Pain - 0, Fatigue - 2 and BP - 156/ 70 mm(hg)(high/). Physical Exam: Imaging: Radiation therapy imaging related to accurate target localization (i.e. KV, MV and CBCT) was reviewed. Appropriate changes, if any, were made to ensure treatment accuracy. Plan: Good tolerance of treatment. Move Flomax to 2 tabs later in evening. Continue treatment as planned. Telemedicine Consent Patient seen today via Telemedicine by agreement and consent of patient. Telemedicine technology used during the visit include audio and, as available, review of images. This patient encounter is appropriate and reasonable under the circumstances given the patient???s particular presentation at this time. The patient has been advised of the potential risks and limitations of this mode of treatment (including but not limited to the absence of in-person examination) and has agreed to be treated in a remote fashion in spite of them. Any and all of the patient???s/patient???s family???s questions on this issue have been answered and I have made no promises or guarantees to the patient. The patient has also been advised to contact this office for worsening conditions or problems, and seek emergency medical treatment and/or call 911 if the patient deems either necessary. Signed by: Sj Hernández 02/04/2023 10:43:55 PM
--- NOTE | 2023-02-12 15:48 | ONCRAD TMN_ITS ---
Radiation Oncology Weekly Treatment Management Patient: Jose Luis Castellano MR#: [id number] : 1950> Attending Physician: Sj Hernández Date of Service: 02/12/2023 Referring Physician(s) : Diagnosis: Radiotherapy to date: Course: Prostate 2022, Treatment Site: Prost Initial, Ref. ID: [id number], Energy: 15X, Dose/Fx (cGy): 200, #Fx: , Dose Correction (cGy): 0, Total Dose (cGy): 2,400, Start Date: 01/28/2023, Elapsed Days: 15 Reason for visit: The patient is being seen today as part of their regularly scheduled weekly on treatment visits to assess for acute toxicities from radiotherapy. Review of Systems: No interval changes. Stable 3 to 4 x nocturia. On Flomax 2 q HS. He has hx of DVT in right leg. On Eliquis. Now has symtoms of pain in right knee. MRI just done of right knee. He will have FU at [facility] to review results. Vital Signs: BMI - 29.387 kg/m2 (high), Height - 69 in, Weight - 199 lbs, Temperature - 96.5 f, Pulse - 88 /min, Respiration - 16 /min, O2 Sat - 99 %, Pain - 4, Fatigue - 3 and BP - 127/ 50 mm(hg)(/low). Physical Exam: Imaging: Radiation therapy imaging related to accurate target localization (i.e. KV, MV and CBCT) was reviewed. Appropriate changes, if any, were made to ensure treatment accuracy. Plan: Good tolerance of treatment. Will continue as planned. Signed by: Sj Hernández 02/12/2023 3:46:50 PM Telemedicine Consent Patient seen today via Telemedicine by agreement and consent of patient. Telemedicine technology used during the visit include audio and, as available, review of images. This patient encounter is appropriate and reasonable under the circumstances given the patient???s particular presentation at this time. The patient has been advised of the potential risks and limitations of this mode of treatment (including but not limited to the absence of in-person examination) and has agreed to be treated in a remote fashion in spite of them. Any and all of the patient???s/patient???s family???s questions on this issue have been answered and I have made no promises or guarantees to the patient. The patient has also been advised to contact this office for worsening conditions or problems, and seek emergency medical treatment and/or call 911 if the patient deems either necessary.
== END 2023-02-13 23:59 | disposition home or self-care (01) ==
PROVIDERS: PCP Family Medicine; Visit Provider Radiology Radiation Oncology
DX: Z51.0 Encounter for antineoplastic radiation therapy (principal); C61 Malignant neoplasm of prostate
CPT/HCPCS: 77336; 77385; 99024

== ENCOUNTER 2023-02-20 11:13 | Outpatient (CLI) | payer MEDICARE, SELFPAY | END 2023-02-20 11:14 | disposition home or self-care (01) | LOC: SPT 11:14 | PROVIDERS: PCP Family Medicine; Visit Provider Physician Assistant | DX: Z46.89 Encounter for fitting and adjustment of other specified devices (principal); M17.12 Unilateral primary osteoarthritis, left knee; S83.412D Sprain of medial collateral ligament of left knee, subsequent encounter; X58.XXXD Exposure to other specified factors, subsequent encounter | CPT/HCPCS: 97760; 99203; L1812 ==

== ENCOUNTER 2023-03-05 12:57 | Oncology outpatient (recurring) (ONCR) | payer MEDICARE, OTHER, SELFPAY ==
--- NOTE | 2023-02-18 15:36 | ONCRAD TMN_ITS ---
Radiation Oncology Weekly Treatment Management Patient: Jose Luis Castellano MR#: [id number] : 1950> Attending Physician: Galen Wolf Date of Service: 02/18/2023 Referring Physician(s) : Diagnosis: Radiotherapy to date: Course: Prostate 2022, Treatment Site: Prost Initial, Ref. ID: [id number], Energy: 15X, Dose/Fx (cGy): 200, #Fx: , Dose Correction (cGy): 0, Total Dose (cGy): 3,000, Start Date: 01/28/2023, Elapsed Days: 21 Reason for visit: The patient is being seen today as part of their regularly scheduled weekly on treatment visits to assess for acute toxicities from radiotherapy. Review of Systems: This urinary pattern is unchanged. He has nocturia times 3-4. He continues to take 2 Flomax in the evening. He has had diarrhea since shortly after starting radiation. He is taking 3 Imodium A-D per day. That has been beneficial but he still has diarrhea frequently. He had an MR of his knee after experiencing sudden pain. There are changes including chondromalacia, effusion, cartilage thinning, and possibly evidence of an acute injury. He is being seen on to discuss the results and whether any surgery will be needed. Vital Signs: Performed on 02/18/2023 2:20 PM BMI - 30.008 kg/m2 (high), Height - 69 in, Weight - 203.2 lbs, Temperature - 96.9 f, Pulse - 89 /min, Respiration - 16 /min, O2 Sat - 91 % (low), Pain - 0, Fatigue - 0 and BP - 137/ 78 mm(hg). Physical Exam: Alert, oriented, no acute distress. Ambulatory without assistance. Imaging: Radiation therapy imaging related to accurate target localization (i.e. KV, MV and CBCT) was reviewed. Appropriate changes, if any, were made to ensure treatment accuracy. Plan: Continue RT per plan. He will be seen for evaluation of his knee and discussion of treatment later this week. We discussed increasing the Imodium A-D. He will continue the 2 Flomax in the evening. Signed by: Galen Wolf 02/18/2023 3:34:53 PM
--- NOTE | 2023-02-26 15:57 | ONCRAD TMN_ITS ---
Radiation Oncology Weekly Treatment Management Patient: Gray Amaya MR#: [id number] : 1950 Attending Physician: Jay South Date of Service: 02/26/2023 Referring Physician(s) : Diagnosis: Radiotherapy to date: Course: Prostate 2022, Treatment Site: Prost Initial, Ref. ID: [id number], Energy: 15X, Dose/Fx (cGy): 200, #Fx: , Dose Correction (cGy): 0, Total Dose (cGy): 4,200, Start Date: 01/28/2023, Elapsed Days: 29 Reason for visit: The patient is being seen today as part of their regularly scheduled weekly on treatment visits to assess for acute toxicities from radiotherapy. Review of Systems: Patient notes continued nocturia and continues on 2 Flomax in the evening. He continues with Imodium A-D for his diarrhea. He had an episode of urinary obstruction in the past and required Negron catheter placement. He reports that he was given several Negron catheters so that he could self catheterize if needed but has not required any further catheterizations. Vital Signs: Physical Exam: Alert and oriented male appearing his stated age. Skin in the treatment area is intact without erythema or desquamation. Patient ambulatory without assistance. Imaging: Radiation therapy imaging related to accurate target localization (i.e. KV, MV and CBCT) was reviewed. Appropriate changes, if any, were made to ensure treatment accuracy. Plan: Continue prescribed treatment. Patient is considering fluid restriction in the evening and will keep us posted of the results. He also indicates he plans to continue on the Imodium A-D. Signed by: Jay South 02/26/2023 3:55:33 PM
--- NOTE | 2023-03-04 09:40 | ONCRAD TMN_ITS ---
Radiation Oncology Weekly Treatment Management Patient: Jose Luis Castellano> MR#: [id number] : 1950> Attending Physician: Sj Hernández Date of Service: 03/04/2023 Referring Physician(s) : Diagnosis: Radiotherapy to date: Course: Prostate 2022, Treatment Site: Prost Initial, Ref. ID: [id number], Energy: 15X, Dose/Fx (cGy): 200,#Fx: , Dose Correction (cGy): 0, Total Dose (cGy): 4,600, Start Date: 01/28/2023, End Date: 02/28/2023, Elapsed Days: Prostate 2022, Treatment Site: Prost Boost, Ref. ID: [id number], Energy: 15X, Dose/Fx (cGy): 200, #Fx: , Dose Correction (cGy): 0, Total Dose (cGy): 400, Start Date: 03/03/2023, Elapsed Days: 1 Reason for visit: The patient is being seen today as part of their regularly scheduled weekly on treatment visits to assess for acute toxicities from radiotherapy. Review of Systems: Doing well with no issues. Flomax BID. Urianry flow is ok. Stable 2 to 3 x nocturia. Rare stinging dysuria. Fatigue improved. Off of Floey catheter now for a while. Vital Signs: Performed on 03/04/2023 7:52 AM BMI - 29.919 kg/m2 (high), Height - 69 in, Weight - 202.6 lbs, Temperature - 97.2 f, Pulse - 86 /min, Respiration - 18 /min, O2 Sat - 97 %, Pain - 0, Fatigue - 2 and BP - 147/ 79 mm(hg)(high/). Physical Exam: Imaging: Radiation therapy imaging related to accurate target localization (i.e. KV, MV and CBCT) was reviewed. Appropriate changes, if any, were made to ensure treatment accuracy. Plan: Good tolerance of treatment. Continue as planned. Signed by: Sj Hernández 03/04/2023 9:39:07 AM
== END 2023-03-05 23:59 | disposition home or self-care (01) ==
PROVIDERS: PCP Family Medicine; Visit Provider Radiology Radiation Oncology
DX: C61 Malignant neoplasm of prostate (principal)
CPT/HCPCS: 77336; 77385; 99024

== ENCOUNTER 2023-03-13 12:42 | Oncology outpatient (recurring) (ONCR) | payer MEDICARE, OTHER, SELFPAY ==
--- OUTSIDE RECORDS SUMMARY | 2023-03-06 07:32 | XMS_ITS | Continuity of Care Document ---
Author Name Unknown Organization [facility] Address [address] [place] [address]- Care Team Providers Care Capital Project Engineer Name Role Phone Scotty Sifuentes MD Primary Care Physician Encounter [facility] Financial Number [phone] Date(s): 11/21/22 - 11/23/22 [facility] [address] [place] [address]- Attending Physician: Blake Ash Results Radiology Reports * Exam Date Time Procedure Performing Provider Status 11/21/22 2:[address] Prostate C A PSMA Initial Eye t Herman Soto; Greg (Verified) Notes: (NM PET CT Prostate CA PSMA Initial Eye t) Reason For Exam: Malignant neoplasm of prostate REPORT Radiologist Zeke Hoyt MD Signed 11/22/22 12:47:52 (Electronic Signature) [employer] Labourer Technologist MAGGY CHAMORRO NM PET CT Prostate CA PSMA Initial Eye to Thigh CLINICAL HISTORY: Malignant neoplasm of prostate. Treatment History: Diagnosis Codes: Reading Location: [place] [address] \T\ [id number] RADIONUCLIDE: Pylarify (piflufolastat F 18) DOSE: 9.79 mCi IV PROCEDURE: Following IV administration of PSMA tracer activity, synchronous PET/CT imaging was performed from top of the head to the thighs. The noncontrast CT portion of the exam used only for attenuation correction and localization purposes. COMPARISON: None. FINDINGS: 9.79 mCi Pylarify (piflufolastat F 18) There is normal biodistribution of tracer activity. There is extensive abnormal activity throughout the vast majority of the prostate consistent with prostate cancer. Maximum SUV is 15.1. The activity is indistinguishable from physiologic activity in the bladder. No additional foci of abnormal activity are identified in the [id number] to suggest metastatic disease in bone or soft tissues from prostate cancer. CT findings: There is mild pleural and parenchymal scarring in the right posterior costophrenic angle. IMPRESSION: 1. Intense activity is identified throughout the majority of the prostate consistent with clinically described prostate cancer. No evidence for metastatic disease. 2. Additional incidental findings as described above. Radiologist: Dr Zeke Hoyt , 11/22/2022 10:03 AM / Edited by: Marie [id number] MILLA_Carlin , 11/22/2022 10:11 AM Electronically signed by: Dr Zeke Hoyt 11/22/2022 12:47 PM Radiologist Zeke Hoyt MD Signed 11/22/22 12:47:52 (Electronic Signature) [employer] Labourer Technologist PEDRO PABLO,MAGGY Social History Social History Type Response Sex Male Radiology * Zeke Hoyt MD: PERFORM, VERIFY Lai PRICE, Zeke: VERIFY, VERIFY Lai PRICE, Zeke: VERIFY Marie Gillis: TRANSCRIBE Event Display: Report Authored Date: Radiologist Zeke Hoyt MD Signed 11/22/22 12:47:52 (Electronic Signature) [employer] Labourer Technologist MAGGY CHAMORRO Note * Zeke Hoyt MD: PERFORM, VERIFY Lai PRICE, Zeke: VERIFY, VERIFY Lai PRICE, Zeke: VERIFY Marie Gillis: TRANSCRIBE Event Display: Powerscribe Read Authored Date: CLINICAL HISTORY: Malignant neoplasm of prostate. Treatment History: Diagnosis Codes: Reading Location: [address]\ [address] RADIONUCLIDE: Pylarify (piflufolastat F 18) DOSE: 9.79 mCi IV PROCEDURE: Following IV administration of PSMA tracer activity, synchronous PET/CT imaging was performed from top of the head to the thighs. The noncontrast CT portion of the exam used only for attenuation correction and localization purposes. COMPARISON: None. FINDINGS: 9.79 mCi Pylarify (piflufolastat F 18) There is normal biodistribution of tracer activity. There is extensive abnormal activity throughout the vast majority of the prostate consistent with prostate cancer. Maximum SUV is 15.1. The activity is indistinguishable from physiologic activity in the bladder. No additional foci of abnormal activity are identified in the [id number] to suggest metastatic disease in bone or soft tissues from prostate cancer. CT findings: There is mild pleural and parenchymal scarring in the right posterior costophrenic angle. IMPRESSION: 1. Intense activity is identified throughout the majority of the prostate consistent with clinically described prostate cancer. No evidence for metastatic disease. 2. Additional incidental findings as described above. Radiologist: Dr Zeke Hoyt , 11/22/2022 10:03 AM / Edited by: Marie [id number] [facility] , 11/22/2022 10:11 AM Electronically signed by: Dr Zeke Hoyt 11/22/2022 12:47 PM Radiologist Zeke Hoyt MD Signed 11/22/22 12:47:52 (Electronic Signature) [employer] Labourer SH Technologist JL,CAF Patient Care team information Care Team Personnel Name: Scotty Sifuentes MD Position: 2 Restricted Providers Member Role: Primary Care Physician Address: Address: [address] [address]
[2023-03-10 09:15] VITALS: BP 133/78; PULSE 82; RESP 16; TEMP 36.5; O2SAT 94
[2023-03-10 09:33] LABS: Basophils % 0.4 %; Eosinophils # 0.2 10^3/uL (0.0-0.8); Eosinophils % 6.4 %; Hematocrit 35.3 % (37-53); Lymphocytes # 0.3 10^3/uL (0.8-4.8); Lymphocytes % 8.9 %; Mean Corpuscular HGB Conc 34.6 g/dL (30-55); Mean Corpuscular Hemoglobin 31.6 pg (27-33); Mean Corpuscular Volume 91.5 fl (82-101); Mean Platelet Volume 10.1 fL (7.4-10.4); Monocytes # 0.4 10^3/uL (0.2-0.9); Monocytes % 14.6 %; Neutrophils # 1.93 10^3/uL (1.8-7.7); Neutrophils % 68.6 %; Nucleated Red Blood Cells % 0 %; Platelet Count 118 10^3/cmm (157-399); Red Blood Count 3.86 10^6/uL (3.85-5.65); Red Cell Distribution Width 13.4 % (12.1-15.1); White Blood Count 2.81 10^3/uL (3.29-11.43)
[2023-03-10 10:03] LABS: Alanine Aminotransferase 32 U/L (0-41); Albumin Level 4.1 g/dL (3.5-5.2); Alkaline Phosphatase 40 U/L (40-130); Anion Gap 13.5 (5-19); Aspartate Amino Transferase 22 U/L (0-40); Blood Urea Nitrogen 17 mg/dL (8-23); Carbon Dioxide 24 mmol/L (22-29); Chloride 107 mmol/L (98-107); Globulin 2.3 g/dL (1.3-4.6); Glucose 168 mg/dL (65-115); Osmolality Calculated 295 mOsm/kg (285-295); Potassium 4.5 mmol/L (3.5-5.1); Prostate Specific Antigen 0.295 ng/mL (0-4); Sodium 140 mmol/L (136-145); Total Bilirubin 0.3 mg/dL (0.15-1.2); Total Protein 6.4 g/dL (6.6-8.7)
[2023-03-10] MEDS: leuprolide 22.5 mg Kit IM (12:05)
--- NOTE | 2023-03-12 16:20 | ONCRAD TMN_ITS ---
Radiation Oncology Weekly Treatment Management Patient: Gray Amaya> MR#: [id number] : 1950> Attending Physician: Sj Hernández Date of Service: 03/12/2023 Referring Physician(s) : Diagnosis: Radiotherapy to date: Course: Prostate 2022, Treatment Site: Prost Initial, Ref. ID: [id number], Energy: 15X, Dose/Fx (cGy): 200, #Fx: , Dose Correction (cGy): 0, Total Dose (cGy): 4,600, Start Date: 01/28/2023, End Date: 02/28/2023, Elapsed Days: 31 Treatment Site: Prost Boost, Ref. ID: [id number], Energy: 15X, Dose/Fx (cGy): 200, #Fx: , Dose Correction (cGy): 0, Total Dose (cGy): 1,600, Date: 03/12/2023, Elapsed Days: 9 Reason for visit: The patient is being seen today as part of their regularly scheduled weekly on treatment visits to assess for acute toxicities from radiotherapy. Review of Systems: Stable nocturia. On Flomax. Vital Signs: Physical Exam: Imaging: Radiation therapy imaging related to accurate target localization (i.e. KV, MV and CBCT) was reviewed. Appropriate changes, if any, were made to ensure treatment accuracy. Plan: Continue as planned. Telemedicine Consent Patient seen today via Telemedicine by agreement and consent of patient. Telemedicine technology used during the visit include audio and, as available, review of images. This patient encounter is appropriate and reasonable under the circumstances given the patient???s particular presentation at this time. The patient has been advised of the potential risks and limitations of this mode of treatment (including but not limited to the absence of in-person examination) and has agreed to be treated in a remote fashion in spite of them. Any and all of the patient???s/patient???s family???s questions on this issue have been answered and I have made no promises or guarantees to the patient. The patient has also been advised to contact this office for worsening conditions or problems, and seek emergency medical treatment and/or call 911 if the patient deems either necessary. Signed by: Sj Hernández 03/12/2023 4:19:04 PM
== END 2023-03-13 23:59 | disposition home or self-care (01) ==
PROVIDERS: Internal Medicine Medical Oncology; PCP Family Medicine; Visit Provider Radiology Radiation Oncology
DX: C61 Malignant neoplasm of prostate (principal); Z51.0 Encounter for antineoplastic radiation therapy
CPT/HCPCS: 36415; 77014; 77336; 77385; 80053; 84153; 85025; 96402; 99024; 99213; J9217

== ENCOUNTER 2023-03-14 07:02 | Oncology outpatient (recurring) (ONCR) | payer MEDICARE, OTHER, SELFPAY | END 2023-03-15 23:59 | disposition home or self-care (01) | PROVIDERS: PCP Family Medicine; Visit Provider Radiology Radiation Oncology | DX: C61 Malignant neoplasm of prostate (principal); Z51.0 Encounter for antineoplastic radiation therapy | CPT/HCPCS: 77336; 77385 ==

== ENCOUNTER 2023-03-21 07:25 | Oncology outpatient (recurring) (ONCR) | payer MEDICARE, OTHER, SELFPAY ==
--- NOTE | 2023-03-17 16:29 | ONCRAD TMN_ITS ---
Radiation Oncology Weekly Treatment Management Patient: Gray Bellamy MR#: [id number] : 1950> Attending Physician: Sj Hernández Date of Service: 03/17/2023 Referring Physician(s) : Diagnosis: Radiotherapy to date: Course: Prostate 2022, Treatment Site: Prost Initial, Ref. ID: [id number], Energy: 15X, Dose/Fx (cGy): 200, #Fx: , Dose Correction (cGy): 0, Total Dose (cGy): 4,600, Start Date: 01/28/2023, End Date: 02/28/2023, Elapsed Days: 31 Treatment Site: Prost Boost, Ref. ID: [id number], Energy: 15X, Dose/Fx (cGy): 200, #Fx: , Dose Correction (cGy): 0, Total Dose (cGy): 2,200, Start Date: 03/03/2023, Elapsed Days: 14 Reason for visit: The patient is being seen today as part of their regularly scheduled weekly on treatment visits to assess for acute toxicities from radiotherapy. Review of Systems: No interval changes. Urination is stable. 3 x nocturia. 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 Physical Exam: Imaging: Radiation therapy imaging related to accurate target localization (i.e. KV, MV and CBCT) was reviewed. Appropriate changes, if any, were made to ensure treatment accuracy. Plan: Continue treatment as planned. Signed by: Sj Hernández 03/17/2023 4:28:35 PM
--- NOTE | 2023-03-24 21:56 | N.ONRD TS_ITS ---
Radiation Oncology Treatment Summary Patient: Jose Luis Castellano MR#: [id number] : 1950 Age: 73 Sex: Male Dictated by: Sj Hernández Date of Service: 03/21/2023 Referring Physician(s) : Diagnosis: Radiotherapy to Date: Course: Prostate 2022, Treatment Site: Prost Initial, Ref. ID: [id number], Energy: 15X, Dose/Fx (cGy): 200, #Fx: , Dose Correction (cGy): 0, Total Dose (cGy): 4,600, Start Date: 01/28/2023, End Date: 02/28/2023, Elapsed Days: 31 Course: Prostate 2022, Treatment Site: Prost Boost, Ref. ID: [id number], Energy: 15X, Dose/Fx (cGy): 200, #Fx: , Dose Correction (cGy): 0, Total Dose (cGy): 3,000, Start Date: 03/03/2023, End Date: 03/21/2023, Elapsed Days: 18 Clinical Summary: The patient tolerated RT well. He had ongoing fatigue and 3 x nocturia with no other sxs. He did have transient painless hematuria while on treatment. He had no bowel sxs Plan: End of treatment today. He will follow-up with urology to assess his transient hematuria which may be treatment related.. Follow up in one month. Signed by: Sj Hernández>03/24/2023 9:53:45 PM <<Signature on File>>
== END 2023-04-15 23:59 | disposition home or self-care (01) ==
PROVIDERS: PCP Family Medicine; Visit Provider Radiology Radiation Oncology
DX: C61 Malignant neoplasm of prostate (principal)
CPT/HCPCS: 77014; 77336; 77385; 77427; 99024

== ENCOUNTER 2023-06-02 10:36 | Oncology outpatient (recurring) (ONCR) | payer MEDICARE, OTHER, SELFPAY ==
[2023-06-02 11:29] VITALS: BP 134/75; PULSE 93; RESP 18; TEMP 36.2; O2SAT 94
[2023-06-02 12:10] LABS: Basophils % 0.6 %; Eosinophils # 0.5 10^3/uL (0.0-0.8); Lymphocytes # 0.3 10^3/uL (0.8-4.8); Lymphocytes % 9.6 %; Mean Corpuscular HGB Conc 33.8 g/dL (30-55); Mean Corpuscular Hemoglobin 32.2 pg (27-33); Mean Corpuscular Volume 95.4 fl (82-101); Mean Platelet Volume 10.7 fL (7.4-10.4); Monocytes # 0.5 10^3/uL (0.2-0.9); Monocytes % 15.1 %; Neutrophils # 2.11 10^3/uL (1.8-7.7); Neutrophils % 61.1 %; Nucleated Red Blood Cells % 0 %; Platelet Count 149 10^3/cmm (157-399); Red Blood Count 3.88 10^6/uL (3.85-5.65); Red Cell Distribution Width 11.9 % (12.1-15.1); White Blood Count 3.45 10^3/uL (3.29-11.43)
[2023-06-02 12:56] LABS: Alanine Aminotransferase 26 U/L (0-41); Albumin Level 3.9 g/dL (3.5-5.2); Alkaline Phosphatase 57 U/L (40-130); Aspartate Amino Transferase 23 U/L (0-40); Blood Urea Nitrogen 17 mg/dL (8-23); Calcium 9.6 mg/dL (8.5-10.5); Carbon Dioxide 24 mmol/L (22-29); Chloride 101 mmol/L (98-107); Creatinine Clr Calc Pharmacy 80.5347; Globulin 3.1 g/dL (1.3-4.6); Glucose 177 mg/dL (65-115); Osmolality Calculated 286 mOsm/kg (285-295); Prostate Specific Antigen 0.216 ng/mL (0-4); Sodium 135 mmol/L (136-145); Total Bilirubin 0.3 mg/dL (0.15-1.2)
[2023-06-02 13:14] LABS: Anion Gap 14.3 (5-19); Potassium 4.3 mmol/L (3.5-5.1)
[2023-06-02] MEDS: leuprolide 22.5 mg Kit IM (13:47)
== END 2023-06-15 23:59 | disposition home or self-care (01) ==
PROVIDERS: Nurse Practitioner Family; PCP Family Medicine; Visit Provider Radiology Radiation Oncology
DX: C61 Malignant neoplasm of prostate (principal); Z08 Encounter for follow-up examination after completed treatment for malignant neoplasm; Z79.899 Other long term (current) drug therapy; Z79.818 Long term (current) use of other agents affecting estrogen receptors and estrogen levels; Z53.9 Procedure and treatment not carried out, unspecified reason
CPT/HCPCS: 36415; 80053; 84153; 85025; 96402; 99214; J9217

== ENCOUNTER 2023-08-25 10:01 | Oncology outpatient (recurring) (ONCR) | payer MEDICARE, OTHER, SELFPAY ==
[2023-08-25 10:23] LABS: Basophils % 0.6 %; Eosinophils # 0.2 10^3/uL (0.0-0.8); Eosinophils % 6.6 %; Hematocrit 40.4 % (37-53); Lymphocytes # 0.5 10^3/uL (0.8-4.8); Lymphocytes % 14.4 %; Mean Corpuscular HGB Conc 34.2 g/dL (30-55); Mean Corpuscular Hemoglobin 31.7 pg (27-33); Mean Corpuscular Volume 92.7 fl (82-101); Mean Platelet Volume 10.8 fL (7.4-10.4); Monocytes # 0.4 10^3/uL (0.2-0.9); Neutrophils # 2.14 10^3/uL (1.8-7.7); Neutrophils % 67.1 %; Nucleated Red Blood Cells % 0 %; Platelet Count 127 10^3/cmm (157-399); Red Blood Count 4.36 10^6/uL (3.85-5.65); Red Cell Distribution Width 12.8 % (12.1-15.1); White Blood Count 3.19 10^3/uL (3.29-11.43)
[2023-08-25 10:52] LABS: Alanine Aminotransferase 39 U/L (0-41); Albumin Level 4.2 g/dL (3.5-5.2); Alkaline Phosphatase 48 U/L (40-130); Anion Gap 15.6 (5-19); Aspartate Amino Transferase 30 U/L (0-40); Blood Urea Nitrogen 17 mg/dL (8-23); Calcium 9.1 mg/dL (8.5-10.5); Carbon Dioxide 26 mmol/L (22-29); Chloride 106 mmol/L (98-107); Globulin 2.7 g/dL (1.3-4.6); Glucose 136 mg/dL (65-115); Osmolality Calculated 300 mOsm/kg (285-295); Potassium 4.6 mmol/L (3.5-5.1); Prostate Specific Antigen 0.166 ng/mL (0-4); Sodium 143 mmol/L (136-145); Total Bilirubin 0.4 mg/dL (0.15-1.2); Total Protein 6.9 g/dL (6.6-8.7)
[2023-08-25 13:50] VITALS: BP 142/78; PULSE 74; RESP 18; TEMP 36.6; O2SAT 98
[2023-08-25] MEDS: leuprolide 22.5 mg Kit IM (14:09)
[2023-08-25 14:24] LABS: Platelet Count 126 10^3/cmm (157-399)
[2023-08-25 14:51] LABS: LAB Peripheral Smear Sent for Review
[2023-08-25 14:56] LABS: HIV 1 & 2 Antibody Non-Reactive (Non-Reactiv); HIV 1 & 2 Antigen Non-Reactive (Non-Reactiv)
[2023-08-25 15:00] LABS: Testosterone Total 7.1 ng/dL (193-740); Thyroid Stimulating Hormone 2.75 uIU/mL (0.27-4.20)
[2023-08-25 15:05] LABS: Hepatitis A Antibody IgM Non-Reactive (Nonreactive); Hepatitis B Core AB, Total Non-Reactive (Nonreactive); Hepatitis B Surface AB < 3.5 (11.5-1000); Hepatitis B Surface Antigen Non-Reactive (Nonreactive); Hepatitis C Virus Antibody Non-Reactive (Nonreactive)
[2023-08-27 15:21] LABS: Leukemia Profile (BBPL) See Report
== END 2023-09-14 23:59 | disposition home or self-care (01) ==
PROVIDERS: Internal Medicine; Nurse Practitioner Family; PCP Family Medicine; Visit Provider Radiology Radiation Oncology
DX: C61 Malignant neoplasm of prostate (principal); Z08 Encounter for follow-up examination after completed treatment for malignant neoplasm; Z79.899 Other long term (current) drug therapy; Z79.818 Long term (current) use of other agents affecting estrogen receptors and estrogen levels
CPT/HCPCS: 36415; 80053; 84153; 84403; 84443; 85025; 85049; 86705; 86706; 86709; 86803; 87340; 87806; 88184; 88185; 96402; 99214; J9217

== ENCOUNTER 2023-09-05 05:57 | Outpatient (CLI) | payer MEDICARE, OTHER, SELFPAY ==
--- NOTE | 2023-09-05 06:15 | US_ITS ---
WS: [id number] ULTRASOUND ABDOMEN CLINICAL INFORMATION: prostate cancer COMPARISON: None. FINDINGS: Liver Size: Liver size upper limits of normal. Craniocaudal length: 15.7 cm. Echogenicity: Coarse Surface nodularity: None. Mass (size and location): None. Bile ducts Intrahepatic ducts: Normal. Common bile duct diameter: 0.3 cm. Gallbladder Normal. Gallstones: None. Gallbladder sludge: None. Gallbladder wall thickening: None. Pericholecystic fluid: None. Sonographic Hart sign: Absent. Pancreas Normal as visualized. Spleen Splenomegaly: None. Craniocaudal length: 9.8 cm. Right kidney: Mild cortical atrophy Hydronephrosis: Mild Size: 9.5 cm x 4.9 cm x 5.4 cm Left kidney: Mild cortical atrophy Hydronephrosis: Mild Size: 10.2 cm x 4.6 cm x 6.1 cm. Abdominal aorta and IVC Visualized portions are normal. Ascites: None. IMPRESSION: Technically difficult study 1. Mild hepatomegaly with diffuse fatty infiltration. 2. Normal gallbladder. 3. Mild bilateral hydronephrosis and hydroureter. 4. Normal spleen.
== END 2023-09-05 05:58 | disposition home or self-care (01) ==
LOC: RAD 05:59
PROVIDERS: PCP Family Medicine; Visit Provider Internal Medicine
DX: C61 Malignant neoplasm of prostate (principal); K76.0 Fatty (change of) liver, not elsewhere classified; N13.30 Unspecified hydronephrosis
CPT/HCPCS: 76700

== ENCOUNTER 2023-11-19 07:34 | Oncology outpatient (recurring) (ONCR) | payer MEDICARE, OTHER, SELFPAY ==
[2023-11-19 08:33] LABS: Basophils % 0.8 %; Eosinophils # 0.2 10^3/uL (0.0-0.8); Eosinophils % 6.7 %; Hematocrit 37.8 % (37-53); Lymphocytes # 0.4 10^3/uL (0.8-4.8); Lymphocytes % 17.3 %; Mean Corpuscular HGB Conc 34.9 g/dL (30-55); Mean Corpuscular Hemoglobin 33.2 pg (27-33); Mean Corpuscular Volume 95.2 fl (82-101); Mean Platelet Volume 10.7 fL (7.4-10.4); Monocytes # 0.4 10^3/uL (0.2-0.9); Monocytes % 14.9 %; Neutrophils # 1.52 10^3/uL (1.8-7.7); Neutrophils % 59.5 %; Nucleated Red Blood Cells % 0 %; Platelet Count 126 10^3/cmm (157-399); Red Blood Count 3.97 10^6/uL (3.85-5.65); Red Cell Distribution Width 12.4 % (12.1-15.1); White Blood Count 2.55 10^3/uL (3.29-11.43)
[2023-11-19 09:00] LABS: Alanine Aminotransferase 43 U/L (0-41); Alkaline Phosphatase 46 U/L (40-130); Anion Gap 16.7 (5-19); Aspartate Amino Transferase 27 U/L (0-40); Blood Urea Nitrogen 19 mg/dL (8-23); Carbon Dioxide 23 mmol/L (22-29); Chloride 106 mmol/L (98-107); Globulin 2.5 g/dL (1.3-4.6); Glucose 245 mg/dL (65-115); Osmolality Calculated 302 mOsm/kg (285-295); Potassium 4.7 mmol/L (3.5-5.1); Prostate Specific Antigen 0.078 ng/mL (0-4); Sodium 141 mmol/L (136-145); Total Bilirubin 0.3 mg/dL (0.15-1.2); Total Protein 6.5 g/dL (6.6-8.7)
[2023-11-19] MEDS: leuprolide 22.5 mg Kit IM (10:45)
== END 2023-12-14 23:59 | disposition home or self-care (01) ==
PROVIDERS: Internal Medicine; PCP Family Medicine; Visit Provider Radiology Radiation Oncology
DX: C61 Malignant neoplasm of prostate (principal); Z51.12 Encounter for antineoplastic immunotherapy; Z79.818 Long term (current) use of other agents affecting estrogen receptors and estrogen levels; Z79.899 Other long term (current) drug therapy
CPT/HCPCS: 36415; 80053; 84153; 85025; 96402; 99214; J9217

== ENCOUNTER 2024-02-11 08:53 | Oncology outpatient (recurring) (ONCR) | payer MEDICARE, OTHER, SELFPAY ==
[2024-02-11 09:23] LABS: Basophils % 1.2 %; Eosinophils # 0.3 10^3/uL (0.0-0.8); Eosinophils % 7.9 %; Hematocrit 39.8 % (37-53); Lymphocytes # 0.6 10^3/uL (0.8-4.8); Lymphocytes % 16.3 %; Mean Corpuscular HGB Conc 34.7 g/dL (30-55); Mean Corpuscular Hemoglobin 32.4 pg (27-33); Mean Corpuscular Volume 93.4 fl (82-101); Mean Platelet Volume 10.4 fL (7.4-10.4); Monocytes # 0.5 10^3/uL (0.2-0.9); Monocytes % 14.3 %; Neutrophils # 2.02 10^3/uL (1.8-7.7); Neutrophils % 58.8 %; Nucleated Red Blood Cells % 0 %; Platelet Count 123 10^3/cmm (157-399); Red Blood Count 4.26 10^6/uL (3.85-5.65); Red Cell Distribution Width 12.4 % (12.1-15.1); White Blood Count 3.43 10^3/uL (3.29-11.43)
[2024-02-11 09:45] LABS: Alanine Aminotransferase 76 U/L (0-41); Albumin Level 4.3 g/dL (3.5-5.2); Alkaline Phosphatase 46 U/L (40-130); Aspartate Amino Transferase 51 U/L (0-40); Blood Urea Nitrogen 19 mg/dL (8-23); Calcium 9.5 mg/dL (8.5-10.5); Carbon Dioxide 23 mmol/L (22-29); Chloride 104 mmol/L (98-107); Globulin 2.4 g/dL (1.3-4.6); Glucose 125 mg/dL (65-115); Osmolality Calculated 290 mOsm/kg (285-295); Prostate Specific Antigen 0.068 ng/mL (0-4); Sodium 138 mmol/L (136-145); Total Bilirubin 0.5 mg/dL (0.15-1.2); Total Protein 6.7 g/dL (6.6-8.7)
[2024-02-11 09:57] LABS: Anion Gap 15.9 (5-19); Potassium 4.9 mmol/L (3.5-5.1)
[2024-02-11 12:00] VITALS: BP 124/78; PULSE 74; RESP 18; TEMP 36.6; O2SAT 98
[2024-02-11] MEDS: leuprolide 22.5 mg Kit IM (12:00)
== END 2024-02-14 23:59 | disposition home or self-care (01) ==
PROVIDERS: Nurse Practitioner Family; PCP Family Medicine; Visit Provider Radiology Radiation Oncology
DX: Z51.12 Encounter for antineoplastic immunotherapy (principal); C61 Malignant neoplasm of prostate; Z79.818 Long term (current) use of other agents affecting estrogen receptors and estrogen levels; Z79.899 Other long term (current) drug therapy; I82.409 Acute embolism and thrombosis of unspecified deep veins of unspecified lower extremity
CPT/HCPCS: 36415; 80053; 84153; 85025; 96402; 99214; J9217

== ENCOUNTER 2024-05-05 10:43 | Oncology outpatient (recurring) (ONCR) | payer MEDICARE, OTHER, SELFPAY ==
[2024-05-05 11:19] LABS: Basophils % 0.6 %; Eosinophils # 0.2 10^3/uL (0.0-0.8); Eosinophils % 6.7 %; Hematocrit 39.2 % (37-53); Lymphocytes # 0.5 10^3/uL (0.8-4.8); Lymphocytes % 14.6 %; Mean Corpuscular HGB Conc 34.9 g/dL (30-55); Mean Corpuscular Hemoglobin 32.8 pg (27-33); Mean Corpuscular Volume 93.8 fl (82-101); Mean Platelet Volume 10.6 fL (7.4-10.4); Monocytes # 0.4 10^3/uL (0.2-0.9); Monocytes % 11.4 %; Neutrophils # 2.28 10^3/uL (1.8-7.7); Neutrophils % 66.4 %; Nucleated Red Blood Cells % 0 %; Platelet Count 105 10^3/cmm (157-399); Red Blood Count 4.18 10^6/uL (3.85-5.65); White Blood Count 3.43 10^3/uL (3.29-11.43)
[2024-05-05 11:49] LABS: Alanine Aminotransferase 65 U/L (0-41); Albumin Level 4.4 g/dL (3.5-5.2); Alkaline Phosphatase 39 U/L (40-130); Anion Gap 16.6 (5-19); Aspartate Amino Transferase 52 U/L (0-40); Blood Urea Nitrogen 19 mg/dL (8-23); Calcium 9.4 mg/dL (8.5-10.5); Carbon Dioxide 22 mmol/L (22-29); Chloride 105 mmol/L (98-107); Creatinine Clr Calc Pharmacy 72.7343; Globulin 2.1 g/dL (1.3-4.6); Glucose 145 mg/dL (65-115); Osmolality Calculated 293 mOsm/kg (285-295); Potassium 4.6 mmol/L (3.5-5.1); Prostate Specific Antigen 0.049 ng/mL (0-4); Sodium 139 mmol/L (136-145); Total Bilirubin 0.5 mg/dL (0.15-1.2); Total Protein 6.5 g/dL (6.6-8.7)
[2024-05-05] MEDS: leuprolide 22.5 mg Kit IM (13:32)
== END 2024-05-15 23:59 | disposition home or self-care (01) ==
PROVIDERS: Nurse Practitioner Family; PCP Family Medicine; Visit Provider Radiology Radiation Oncology
DX: C61 Malignant neoplasm of prostate; Z79.818 Long term (current) use of other agents affecting estrogen receptors and estrogen levels; Z79.899 Other long term (current) drug therapy; Z51.11 Encounter for antineoplastic chemotherapy
CPT/HCPCS: 36415; 80053; 84153; 85025; 96402; 99214; J9217

== ENCOUNTER 2024-08-06 14:00 | Oncology outpatient (recurring) (ONCR) | payer MEDICARE, SELFPAY ==
[2024-07-28 11:48] LABS: Basophils % 0.9 %; Eosinophils # 0.3 10^3/uL (0.0-0.8); Eosinophils % 9.1 %; Hematocrit 39.5 % (37-53); Lymphocytes # 0.8 10^3/uL (0.8-4.8); Lymphocytes % 23.7 %; Mean Corpuscular HGB Conc 33.9 g/dL (30-55); Mean Corpuscular Hemoglobin 31.9 pg (27-33); Mean Platelet Volume 10.4 fL (7.4-10.4); Monocytes # 0.5 10^3/uL (0.2-0.9); Monocytes % 13.7 %; Neutrophils # 1.71 10^3/uL (1.8-7.7); Nucleated Red Blood Cells % 0 %; Platelet Count 108 10^3/cmm (157-399); Red Cell Distribution Width 12.8 % (12.1-15.1); White Blood Count 3.29 10^3/uL (3.29-11.43)
[2024-07-28 12:20] LABS: Alanine Aminotransferase 55 U/L (0-41); Albumin Level 4.5 g/dL (3.5-5.2); Alkaline Phosphatase 43 U/L (40-130); Anion Gap 17.4 (5-19); Aspartate Amino Transferase 48 U/L (0-40); Blood Urea Nitrogen 17 mg/dL (8-23); Calcium 9.7 mg/dL (8.5-10.5); Carbon Dioxide 24 mmol/L (22-29); Chloride 103 mmol/L (98-107); Globulin 2.3 g/dL (1.3-4.6); Glucose 240 mg/dL (65-115); Osmolality Calculated 299 mOsm/kg (285-295); Potassium 4.4 mmol/L (3.5-5.1); Prostate Specific Antigen 0.047 ng/mL (0-4); Sodium 140 mmol/L (136-145); Total Bilirubin 0.4 mg/dL (0.15-1.2); Total Protein 6.8 g/dL (6.6-8.7)
[2024-07-28] MEDS: leuprolide 22.5 mg Kit IM (14:11)
--- NOTE | 2024-08-06 14:00 | USCV_ITS ---
Jose Luis Castellano Age: 74 Gender: M : 1950 Exam Date: 08/06/2024 13:16 Ordering Phys: Marie Matthews NP Technologist: DAVE [place] [facility] [place]: [place] D[place] HISTORY: DVT. PROCEDURES: Comparison:. 11/29/22 Venous duplex imaging was performed in only the left lower extremity. The following venous structures were evaluated: common femoral vein, profunda vein, proximal portion of the greater saphenous vein, superficial femoral vein, and the popliteal vein. In addition, the posterior tibial and peroneal trunk were evaluated. Serial compression, augmentation maneuvers, and spectral Doppler flow evaluation were performed. FINDINGS: Minimal chronic thrombophlebitis left distal SF and popliteal veins. No acute DVT. CONCLUSIONS No acute DVT. Minimal chronic residual thrombus left SF and popliteal veins. Dr. Jessica Ely DO (Electronically Signed) Final Date: 06 August 2024 14:20 S
== END 2024-08-13 23:59 | disposition home or self-care (01) ==
LOC: RAD 08-07 → ONCMED 08-09 09:10
PROVIDERS: Nurse Practitioner Family; PCP Family Medicine; Visit Provider Nurse Practitioner
DX: I82.5Z2 Chronic embolism and thrombosis of unspecified deep veins of left distal lower extremity (principal)
CPT/HCPCS: 36415; 80053; 84153; 85025; 93971; 96402; 99214; J9217

== ENCOUNTER 2024-10-07 11:26 | Outpatient (CLI) | payer MEDICARE, SELFPAY ==
--- NOTE | 2024-10-07 | ECG_ITS ---
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 Interpretive Statements Intraprocedure shortess of breath; Symptoms resoled by discharge; Lung unchanged pre/post procedure PROCEDURE: At the baseline, the patient's blood pressure was with a heart rate of. The baseline electrocardiogram showed normal sinus rhythm with normal ST-Ts. Right bundle branch block pattern.. The patient exercised for 5 minutes on a standard Casey protocol. Patient attained a maximum heart rate of 148 beats per minute(192% of the maximum predicted heart rate) with a blood pressure at the peak exercise of 170/58 mm Hg. The EKG at the peak exercise revealed no significant changes. Patient did not have any chest pain or any significant cardiac arrhythmias with the exercise During the recovery phase, there were no new changes. Blood pressure at the end of the recovery phase was 140/77 mm Hg with a heart rate of 96 per minute. CONCLUSION: 1. No significant EKG changes with the treadmill exercise 2. No exercise-induced chest pain or cardiac arrhythmia 3. Slightly impaired exercise tolerance, attained a maximum of 7.0 METs Electronically Signed On 10-07-2024 17:25:50 CDT by Torie Brown M.D. [email or web address]
[2024-10-07 12:22] VITALS: BP 140/77; PULSE 96; BMI 29.5
== END 2024-10-07 11:27 | disposition home or self-care (01) ==
PROVIDERS: PCP Family Medicine; Visit Provider Family Medicine
DX: R94.31 Abnormal electrocardiogram [ECG] [EKG] (principal); Z01.810 Encounter for preprocedural cardiovascular examination
CPT/HCPCS: 93017

== ENCOUNTER 2024-10-20 08:23 | Oncology outpatient (recurring) (ONCR) | payer MEDICARE, SELFPAY ==
[2024-10-20 08:39] LABS: Basophils % 0.8 %; Eosinophils # 0.3 10^3/uL (0.0-0.8); Eosinophils % 7.8 %; Hematocrit 37.2 % (37-53); Lymphocytes # 0.6 10^3/uL (0.8-4.8); Lymphocytes % 16.3 %; Mean Corpuscular HGB Conc 34.4 g/dL (30-55); Mean Corpuscular Hemoglobin 31.9 pg (27-33); Mean Corpuscular Volume 92.8 fl (82-101); Mean Platelet Volume 11.2 fL (7.4-10.4); Monocytes # 0.4 10^3/uL (0.2-0.9); Monocytes % 10.5 %; Neutrophils % 63.8 %; Nucleated Red Blood Cells % 0 %; Platelet Count 93 10^3/cmm (157-399); Red Blood Count 4.01 10^6/uL (3.85-5.65); Red Cell Distribution Width 11.9 % (12.1-15.1); White Blood Count 3.61 10^3/uL (3.29-11.43)
[2024-10-20 09:07] LABS: Alanine Aminotransferase 41 U/L (0-41); Albumin Level 4.2 g/dL (3.5-5.2); Alkaline Phosphatase 41 U/L (40-130); Anion Gap 18.4 (5-19); Aspartate Amino Transferase 32 U/L (0-40); Blood Urea Nitrogen 20 mg/dL (8-23); Calcium 9.7 mg/dL (8.5-10.5); Carbon Dioxide 19 mmol/L (22-29); Chloride 104 mmol/L (98-107); Globulin 2.4 g/dL (1.3-4.6); Glucose 228 mg/dL (65-115); Osmolality Calculated 294 mOsm/kg (285-295); Potassium 4.4 mmol/L (3.5-5.1); Prostate Specific Antigen 0.031 ng/mL (0-4); Sodium 137 mmol/L (136-145); Total Bilirubin 0.5 mg/dL (0.15-1.2); Total Protein 6.6 g/dL (6.6-8.7)
[2024-10-20] MEDS: leuprolide 22.5 mg Kit IM (10:19)
[2024-10-20 10:32] LABS: D Dimer 0.48 ug/mLFEU (0-0.59)
== END 2024-11-13 23:59 | disposition home or self-care (01) ==
PROVIDERS: Internal Medicine; PCP Family Medicine; Visit Provider Nurse Practitioner
DX: Z51.11 Encounter for antineoplastic chemotherapy (principal); C61 Malignant neoplasm of prostate; R03.0 Elevated blood-pressure reading, without diagnosis of hypertension; I82.402 Acute embolism and thrombosis of unspecified deep veins of left lower extremity; Z79.818 Long term (current) use of other agents affecting estrogen receptors and estrogen levels; Z79.899 Other long term (current) drug therapy; Z92.3 Personal history of irradiation
CPT/HCPCS: 36415; 80053; 84153; 85025; 85378; 96402; 99213; J9217

== ENCOUNTER 2024-12-09 09:21 | Oncology outpatient (recurring) (ONCR) | payer MEDICARE, SELFPAY ==
--- NOTE | 2024-12-02 16:16 | ONCRAD EPV_ITS ---
Radiation Oncology Established Patient Visit Patient: Jose Luis Castellano [id number] : 1950 Age: 74 Sex: Male Dictated by: Dr. Sj Hernández Date of Service: 12/02/2024 Referring Physician(s) : Diagnosis: Radiotherapy to Date: Course: Prostate 2022, Treatment Site: Prost Initial, Ref. ID: [id number], Energy: 15X, Dose/Fx (cGy): 200, #Fx: , Dose Correction (cGy): 0, Total Dose Delivered (cGy): 4,600, Start Date: 01/28/2023, End Date: 02/28/2023, Elapsed Days: 31 Course: Prostate 2022, Treatment Site: Prost Boost, Ref. ID: [id number], Energy: 15X, Dose/Fx (cGy): 200, #Fx: , Dose Correction (cGy): 0, Total Dose Delivered (cGy): 3,000, Start Date: 03/03/2023, End Date: 03/21/2023, Elapsed Days: 18 Current History: He has had minimal rare episodes of painless gross hematuria. No other urinary sxss. Repeat PSMA reveals prostatic recurrence. Cysto reveals prostatic urethral recurrence. ( No biopsies obtained ) PS 0.03. Current Medications: apixaban (Eliquis) mg PO [left hinge brace As directed] loperamide (Imodium A-D) 2 mg PO QID PRN metformin 1,000 mg PO BID multivitamin 1 tab PO DAILY rosuvastatin mg PO tamsulosin 0.8 mg PO QPM vitamin B complex 1 cap PO DAILY PRN Allergies: No Known Allergies Current Complaints / Review of Systems: .see above. Vital Signs: Performed on 12/02/2024 2:00 PM BMI - 30.126 kg/m2 (high), Height - 69 in, Weight - 204 lbs, Temperature - 98.7 f, Pulse - 92 /min, Respiration - 17 /min, O2 Sat - 96 %, Pain - 0, Fatigue - 0 and BP - 130/ 72 mm(hg). Physical Exam: General: Alert and oriented x 3. No acute distress. Performance Status: ECOG PS 0 - 1 Lab: None pending. Pathology: See previous notes Imaging: See HPI Impression: Central prostatic recurrence following definitive RT and ADT. Minimal sxs. Recommend modification of systemic treatment first. Can consider adding palliative retreatment of prostate for symptomatic recurrence. Discussed in detail with patient, spouse and Dr. Adrian. Signed by: 12/02/2024 4:14:34 PM <<Signature on File>> Time spent with patient: CPT Code: CPT Code:
[2024-12-09 09:50] LABS: Basophils % 0.7 %; Eosinophils # 0.4 10^3/uL (0.0-0.8); Eosinophils % 8.7 %; Hematocrit 42.7 % (37-53); Lymphocytes # 0.8 10^3/uL (0.8-4.8); Lymphocytes % 19.2 %; Mean Corpuscular HGB Conc 32.3 g/dL (30-55); Mean Corpuscular Hemoglobin 31.3 pg (27-33); Mean Corpuscular Volume 96.8 fl (82-101); Mean Platelet Volume 11.3 fL (7.4-10.4); Monocytes # 0.5 10^3/uL (0.2-0.9); Monocytes % 12.4 %; Neutrophils # 2.36 10^3/uL (1.8-7.7); Neutrophils % 58.8 %; Nucleated Red Blood Cells % 0 %; Platelet Count 102 10^3/cmm (157-399); Red Blood Count 4.41 10^6/uL (3.85-5.65); White Blood Count 4.02 10^3/uL (3.29-11.43)
[2024-12-09 10:29] LABS: Alanine Aminotransferase 45 U/L (0-41); Albumin Level 4.1 g/dL (3.5-5.2); Alkaline Phosphatase 44 U/L (40-130); Anion Gap 19.5 (5-19); Aspartate Amino Transferase 37 U/L (0-40); Blood Urea Nitrogen 20 mg/dL (8-23); Calcium 9.6 mg/dL (8.5-10.5); Carbon Dioxide 17 mmol/L (22-29); Chloride 102 mmol/L (98-107); Creatinine Clr Calc Pharmacy 71.5466; Globulin 2.6 g/dL (1.3-4.6); Glucose 117 mg/dL (65-115); Osmolality Calculated 282 mOsm/kg (285-295); Potassium 4.5 mmol/L (3.5-5.1); Prostate Specific Antigen 0.029 ng/mL (0-4); Sodium 134 mmol/L (136-145); Testosterone Total 7.9 ng/dL (193-740); Total Bilirubin 0.6 mg/dL (0.15-1.2); Total Protein 6.7 g/dL (6.6-8.7)
== END 2024-12-13 23:59 | disposition home or self-care (01) ==
PROVIDERS: Nurse Practitioner Family; PCP Family Medicine; Visit Provider Nurse Practitioner
DX: Z51.11 Encounter for antineoplastic chemotherapy (principal); C61 Malignant neoplasm of prostate; R03.0 Elevated blood-pressure reading, without diagnosis of hypertension; I82.402 Acute embolism and thrombosis of unspecified deep veins of left lower extremity; Z79.818 Long term (current) use of other agents affecting estrogen receptors and estrogen levels; Z79.899 Other long term (current) drug therapy; Z92.3 Personal history of irradiation
CPT/HCPCS: 36415; 80053; 84153; 84403; 85025; 99213; 99215

== ENCOUNTER 2025-01-12 10:00 | Oncology outpatient (recurring) (ONCR) | payer MEDICARE, SELFPAY ==
[2024-12-23 08:12] LABS: Hematocrit 38.7 % (37-53); Hemoglobin 13.20 g/dL (11.27-16.99); Mean Corpuscular HGB Conc 34.1 g/dL (30-55); Mean Corpuscular Hemoglobin 31.8 pg (27-33); Mean Corpuscular Volume 93.3 fl (82-101); Nucleated Red Blood Cells % 0 %; Platelet Count 101 10^3/cmm (157-399); Red Blood Count 4.15 10^6/uL (3.85-5.65); White Blood Count 3.85 10^3/uL (3.29-11.43)
[2024-12-23 08:30] LABS: Alanine Aminotransferase 41 U/L (0-41); Albumin Level 4.5 g/dL (3.5-5.2); Alkaline Phosphatase 41 U/L (40-130); Anion Gap 17.6 (5-19); Aspartate Amino Transferase 39 U/L (0-40); Blood Urea Nitrogen 22 mg/dL (8-23); Calcium 9.8 mg/dL (8.5-10.5); Carbon Dioxide 22 mmol/L (22-29); Chloride 102 mmol/L (98-107); Globulin 2.5 g/dL (1.3-4.6); Glucose 277 mg/dL (65-115); Osmolality Calculated 297 mOsm/kg (285-295); Potassium 4.6 mmol/L (3.5-5.1); Sodium 137 mmol/L (136-145); Total Protein 7.0 g/dL (6.6-8.7)
[2025-01-12 10:03] LABS: Hematocrit 37.9 % (37-53); Hemoglobin 13.00 g/dL (11.27-16.99); Mean Corpuscular HGB Conc 34.3 g/dL (30-55); Mean Corpuscular Hemoglobin 31.6 pg (27-33); Mean Corpuscular Volume 92.0 fl (82-101); Nucleated Red Blood Cells % 0 %; Platelet Count 95 10^3/cmm (157-399); Red Blood Count 4.12 10^6/uL (3.85-5.65); White Blood Count 4.05 10^3/uL (3.29-11.43)
[2025-01-12 10:31] LABS: Alanine Aminotransferase 55 U/L (0-41); Albumin Level 4.3 g/dL (3.5-5.2); Alkaline Phosphatase 38 U/L (40-130); Anion Gap 15.6 (5-19); Aspartate Amino Transferase 80 U/L (0-40); Blood Urea Nitrogen 19 mg/dL (8-23); Calcium 9.6 mg/dL (8.5-10.5); Carbon Dioxide 23 mmol/L (22-29); Chloride 102 mmol/L (98-107); Globulin 2.5 g/dL (1.3-4.6); Glucose 218 mg/dL (65-115); Osmolality Calculated 291 mOsm/kg (285-295); Potassium 4.6 mmol/L (3.5-5.1); Prostate Specific Antigen 0.022 ng/mL (0-4); Sodium 136 mmol/L (136-145); Total Protein 6.8 g/dL (6.6-8.7)
[2025-01-12] MEDS: leuprolide 22.5 mg Kit IM (12:11)
== END 2025-01-13 23:59 | disposition home or self-care (01) ==
PROVIDERS: Internal Medicine; Nurse Practitioner Family; PCP Family Medicine; Visit Provider Nurse Practitioner
DX: Z51.11 Encounter for antineoplastic chemotherapy; C61 Malignant neoplasm of prostate; I82.402 Acute embolism and thrombosis of unspecified deep veins of left lower extremity; R03.0 Elevated blood-pressure reading, without diagnosis of hypertension; R74.01 Elevation of levels of liver transaminase levels; D69.6 Thrombocytopenia, unspecified; Z79.818 Long term (current) use of other agents affecting estrogen receptors and estrogen levels; Z79.899 Other long term (current) drug therapy; Z87.891 Personal history of nicotine dependence; Z92.3 Personal history of irradiation; Z79.52 Long term (current) use of systemic steroids; Z53.9 Procedure and treatment not carried out, unspecified reason
CPT/HCPCS: 36415; 80053; 83615; 84153; 84403; 85025; 85378; 96402; 99213; J9217

== ENCOUNTER 2025-02-09 08:59 | Oncology outpatient (recurring) (ONCR) | payer MEDICARE, SELFPAY ==
[2025-02-09 09:22] LABS: Hematocrit 36.9 % (37-53); Hemoglobin 12.60 g/dL (11.27-16.99); Mean Corpuscular HGB Conc 34.1 g/dL (30-55); Mean Corpuscular Hemoglobin 31.9 pg (27-33); Mean Corpuscular Volume 93.4 fl (82-101); Nucleated Red Blood Cells % 0 %; Platelet Count 113 10^3/cmm (157-399); Red Blood Count 3.95 10^6/uL (3.85-5.65); White Blood Count 3.83 10^3/uL (3.29-11.43)
[2025-02-09 09:36] LABS: Alanine Aminotransferase 33 U/L (0-41); Albumin Level 4.1 g/dL (3.5-5.2); Alkaline Phosphatase 34 U/L (40-130); Anion Gap 12.6 (5-19); Aspartate Amino Transferase 28 U/L (0-40); Blood Urea Nitrogen 23 mg/dL (8-23); Calcium 9.5 mg/dL (8.5-10.5); Carbon Dioxide 24 mmol/L (22-29); Chloride 102 mmol/L (98-107); Globulin 2.5 g/dL (1.3-4.6); Glucose 302 mg/dL (65-115); Osmolality Calculated 293 mOsm/kg (285-295); Potassium 4.6 mmol/L (3.5-5.1); Sodium 134 mmol/L (136-145); Total Protein 6.6 g/dL (6.6-8.7)
[2025-02-09 11:25] LABS: Prostate Specific Antigen 0.024 ng/mL (0-4)
== END 2025-02-13 23:59 | disposition home or self-care (01) ==
LOC: ONCMED 08:59
PROVIDERS: Internal Medicine; PCP Family Medicine; Visit Provider Nurse Practitioner Family
DX: C61 Malignant neoplasm of prostate (principal); I82.402 Acute embolism and thrombosis of unspecified deep veins of left lower extremity; R03.0 Elevated blood-pressure reading, without diagnosis of hypertension; Z79.818 Long term (current) use of other agents affecting estrogen receptors and estrogen levels; Z79.899 Other long term (current) drug therapy; Z87.891 Personal history of nicotine dependence; Z92.3 Personal history of irradiation; Z79.52 Long term (current) use of systemic steroids
CPT/HCPCS: 36415; 80053; 84153; 84403; 85025; 99214

== ENCOUNTER 2025-03-09 12:31 | Oncology outpatient (recurring) (ONCR) | payer MEDICARE, SELFPAY ==
[2025-03-09 13:05] LABS: Hematocrit 37.6 % (37-53); Hemoglobin 12.80 g/dL (11.27-16.99); Mean Corpuscular HGB Conc 34.0 g/dL (30-55); Mean Corpuscular Hemoglobin 31.7 pg (27-33); Mean Corpuscular Volume 93.1 fl (82-101); Nucleated Red Blood Cells % 0 %; Platelet Count 104 10^3/cmm (157-399); Red Blood Count 4.04 10^6/uL (3.85-5.65); White Blood Count 4.14 10^3/uL (3.29-11.43)
[2025-03-09 13:52] LABS: Alanine Aminotransferase 27 U/L (0-41); Albumin Level 4.1 g/dL (3.5-5.2); Alkaline Phosphatase 31 U/L (40-130); Anion Gap 15.6 (5-19); Aspartate Amino Transferase 19 U/L (0-40); Blood Urea Nitrogen 19 mg/dL (8-23); Calcium 9.6 mg/dL (8.5-10.5); Carbon Dioxide 21 mmol/L (22-29); Chloride 107 mmol/L (98-107); Creatinine Clr Calc Pharmacy 77.2539; Globulin 2.4 g/dL (1.3-4.6); Glucose 228 mg/dL (65-115); Osmolality Calculated 297 mOsm/kg (285-295); Potassium 4.6 mmol/L (3.5-5.1); Prostate Specific Antigen 0.020 ng/mL (0-4); Sodium 139 mmol/L (136-145); Total Protein 6.5 g/dL (6.6-8.7)
== END 2025-03-15 23:59 | disposition home or self-care (01) ==
PROVIDERS: PCP Family Medicine; Visit Provider Nurse Practitioner Family
DX: C61 Malignant neoplasm of prostate (principal); I82.402 Acute embolism and thrombosis of unspecified deep veins of left lower extremity; R03.0 Elevated blood-pressure reading, without diagnosis of hypertension; Z79.818 Long term (current) use of other agents affecting estrogen receptors and estrogen levels; Z79.899 Other long term (current) drug therapy; Z87.891 Personal history of nicotine dependence; Z92.3 Personal history of irradiation
CPT/HCPCS: 36415; 80053; 84153; 84403; 85025; 99214

== ENCOUNTER 2025-04-06 10:28 | Oncology outpatient (recurring) (ONCR) | payer MEDICARE, SELFPAY ==
[2025-04-06 11:03] LABS: Hematocrit 34.7 % (37-53); Hemoglobin 12.10 g/dL (11.27-16.99); Mean Corpuscular HGB Conc 34.9 g/dL (30-55); Mean Corpuscular Hemoglobin 33.4 pg (27-33); Mean Corpuscular Volume 95.9 fl (82-101); Nucleated Red Blood Cells % 0 %; Platelet Count 84 10^3/cmm (157-399); Red Blood Count 3.62 10^6/uL (3.85-5.65); White Blood Count 3.51 10^3/uL (3.29-11.43)
[2025-04-06 11:43] LABS: Alanine Aminotransferase 23 U/L (0-41); Albumin Level 4.2 g/dL (3.5-5.2); Alkaline Phosphatase 30 U/L (40-130); Anion Gap 19.6 (5-19); Aspartate Amino Transferase 20 U/L (0-40); Blood Urea Nitrogen 18 mg/dL (8-23); Calcium 9.0 mg/dL (8.5-10.5); Carbon Dioxide 23 mmol/L (22-29); Chloride 102 mmol/L (98-107); Creatinine Clr Calc Pharmacy 77.5565; Globulin 1.8 g/dL (1.3-4.6); Glucose 291 mg/dL (65-115); Osmolality Calculated 303 mOsm/kg (285-295); Potassium 4.6 mmol/L (3.5-5.1); Prostate Specific Antigen < 0.014 ng/mL (0-4); Sodium 140 mmol/L (136-145); Total Protein 6.0 g/dL (6.6-8.7)
[2025-04-06] MEDS: leuprolide 22.5 mg Kit IM (12:22)
== END 2025-04-15 23:59 | disposition home or self-care (01) ==
PROVIDERS: Internal Medicine; PCP Family Medicine; Visit Provider Nurse Practitioner Family
DX: Z51.11 Encounter for antineoplastic chemotherapy (principal); C61 Malignant neoplasm of prostate; I82.402 Acute embolism and thrombosis of unspecified deep veins of left lower extremity; R03.0 Elevated blood-pressure reading, without diagnosis of hypertension; Z79.818 Long term (current) use of other agents affecting estrogen receptors and estrogen levels; Z79.899 Other long term (current) drug therapy; Z87.891 Personal history of nicotine dependence; Z92.3 Personal history of irradiation; Z79.52 Long term (current) use of systemic steroids
CPT/HCPCS: 36415; 80053; 84153; 84403; 85025; 96402; 99213; J9217

== ENCOUNTER 2025-05-04 09:37 | Oncology outpatient (recurring) (ONCR) | payer MEDICARE, SELFPAY ==
[2025-05-04 09:54] LABS: Hematocrit 36.6 % (37-53); Hemoglobin 12.30 g/dL (11.27-16.99); Mean Corpuscular HGB Conc 33.6 g/dL (30-55); Mean Corpuscular Hemoglobin 32.2 pg (27-33); Mean Corpuscular Volume 95.8 fl (82-101); Nucleated Red Blood Cells % 0 %; Platelet Count 102 10^3/cmm (157-399); Red Blood Count 3.82 10^6/uL (3.85-5.65); White Blood Count 4.27 10^3/uL (3.29-11.43)
[2025-05-04 10:27] LABS: Alanine Aminotransferase 19 U/L (0-41); Albumin Level 4.1 g/dL (3.5-5.2); Alkaline Phosphatase 30 U/L (40-130); Anion Gap 16.5 (5-19); Aspartate Amino Transferase 19 U/L (0-40); Blood Urea Nitrogen 23 mg/dL (8-23); Calcium 9.4 mg/dL (8.5-10.5); Carbon Dioxide 23 mmol/L (22-29); Chloride 101 mmol/L (98-107); Globulin 2.0 g/dL (1.3-4.6); Glucose 264 mg/dL (65-115); Osmolality Calculated 295 mOsm/kg (285-295); Potassium 4.5 mmol/L (3.5-5.1); Sodium 136 mmol/L (136-145); Total Protein 6.1 g/dL (6.6-8.7)
[2025-05-04 10:33] LABS: Prostate Specific Antigen < 0.014 ng/mL (0-4)
== END 2025-05-15 23:59 | disposition home or self-care (01) ==
PROVIDERS: Nurse Practitioner; PCP Family Medicine; Visit Provider Nurse Practitioner Family
DX: C61 Malignant neoplasm of prostate (principal); I82.402 Acute embolism and thrombosis of unspecified deep veins of left lower extremity; R03.0 Elevated blood-pressure reading, without diagnosis of hypertension; Z79.818 Long term (current) use of other agents affecting estrogen receptors and estrogen levels; Z79.899 Other long term (current) drug therapy; Z87.891 Personal history of nicotine dependence; Z92.3 Personal history of irradiation; Z79.52 Long term (current) use of systemic steroids
CPT/HCPCS: 36415; 80053; 84153; 84403; 85025; 99214

== ENCOUNTER 2025-06-01 09:07 | Oncology outpatient (recurring) (ONCR) | payer MEDICARE, SELFPAY ==
[2025-06-01 09:40] LABS: Hematocrit 35.4 % (37-53); Hemoglobin 12.00 g/dL (11.27-16.99); Mean Corpuscular HGB Conc 33.9 g/dL (30-55); Mean Corpuscular Hemoglobin 32.1 pg (27-33); Mean Corpuscular Volume 94.7 fl (82-101); Nucleated Red Blood Cells % 0 %; Platelet Count 110 10^3/cmm (157-399); Red Blood Count 3.74 10^6/uL (3.85-5.65); White Blood Count 4.13 10^3/uL (3.29-11.43)
[2025-06-01 10:07] LABS: Alanine Aminotransferase 17 U/L (0-41); Albumin Level 4.1 g/dL (3.5-5.2); Alkaline Phosphatase 32 U/L (40-130); Aspartate Amino Transferase 19 U/L (0-40); Blood Urea Nitrogen 20 mg/dL (8-23); Calcium 9.5 mg/dL (8.5-10.5); Carbon Dioxide 27 mmol/L (22-29); Chloride 104 mmol/L (98-107); Creatinine Clr Calc Pharmacy 77.2539; Globulin 1.8 g/dL (1.3-4.6); Glucose 299 mg/dL (65-115); Osmolality Calculated 308 mOsm/kg (285-295); Prostate Specific Antigen 0.015 ng/mL (0-4); Sodium 142 mmol/L (136-145); Total Protein 5.9 g/dL (6.6-8.7)
[2025-06-01 10:11] LABS: Anion Gap 15.6 (5-19); Potassium 4.6 mmol/L (3.5-5.1)
== END 2025-06-15 23:59 | disposition home or self-care (01) ==
PROVIDERS: Nurse Practitioner; PCP Family Medicine; Visit Provider Internal Medicine
DX: C61 Malignant neoplasm of prostate (principal); R03.0 Elevated blood-pressure reading, without diagnosis of hypertension; I82.402 Acute embolism and thrombosis of unspecified deep veins of left lower extremity; Z79.818 Long term (current) use of other agents affecting estrogen receptors and estrogen levels; Z79.899 Other long term (current) drug therapy; Z87.891 Personal history of nicotine dependence; Z79.52 Long term (current) use of systemic steroids; N02.9 Recurrent and persistent hematuria with unspecified morphologic changes
CPT/HCPCS: 36415; 80053; 84153; 84403; 85025; 99213